=== PATIENT | female | born 1995 | race Caucasian/White ===

== ENCOUNTER 2017-01-24 23:00 | Emergency (ER) | payer BC ==
[2017-01-24 23:20] VITALS: BP 143/85
[2017-01-24] MEDS ORDERED: Sodium Chloride 0.9% 1,000 ML IV ONE (23:34)
[2017-01-24] MEDS ORDERED: Ketorolac 30 MG/ML SDV IVPUSH ONE (23:36)
--- NOTE | 2017-01-24 23:42 | EDM.PDOC ---
ED HPI GENERAL MEDICAL PROBLEM - General Chief Complaint: Abdominal Pain Stated Complaint: SIDE PAIN Time Seen by Provider: 01/24/17 23:34 Source of Information: Reports: Patient History Limitations: Reports: No Limitations - History of Present Illness INITIAL COMMENTS - FREE TEXT/NARRATIVE: 21 year old fm presents to ed with complaint of abdominal pain. Pain began at 4 pm today. It is sharp, continuous and located in the RUQ. She has vomited over 10 times and has vomited 3 times since coming to the ED. She denies any fever, chills, night sweats, diarrhea, hematuria, dysuria, vaginal discharge or vaginal bleeding. 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 Lawrence. She is scheduled to have cholecystectomy in the next few weeks. She has been having intermittent pain but it is controllable and the vomiting usually responds to OTC Ondansetron. This is the first time the pain has been continuous and she has not had repeated vomiting like this in the past. Her medications include control and Lexapro which she takes for anxiety. Right Upper Abdomen Pain Score (Numeric/FACES): 8 - Related Data Allergies Allergy/AdvReac Type Severity Reaction Status Date / Time No Known Allergies Allergy Verified 01/24/17 23:16 Home Meds: Home Meds Escitalopram Oxalate [Lexapro] 5 mg PO DAILY 01/24/17 [History] Metoclopramide [Reglan] 10 mg PO Q8H 7 Days #21 tablet 01/25/17 [Rx] Past Medical History HEENT History: Reports: Impaired Vision Cardiovascular History: Reports: None Respiratory History: Reports: None Gastrointestinal History: Reports: GERD Genitourinary History: Reports: Other (See Below) Other Genitourinary History: hydronephrosis [employer]ET [employer]OTE[employer] 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: Musculoskeletal History: Reports: Fracture Neurological History: Reports: None Psychiatric History: Reports: Depression Endocrine/Metabolic History: Reports: Other (See Below) Other Endocrine/Metabolic History: hypoglycemia Hematologic History: Reports: Other (See Below) Other Hematologic History: von Willenbrande Immunologic History: Reports: None Oncologic (Cancer) History: Reports: None Dermatologic History: Reports: None - Infectious Disease History Infectious Disease History: Reports: Chicken Pox, Shingles - Past Surgical History HEENT Surgical History: Reports: Adenoidectomy, Oral Surgery, Tonsillectomy Cardiovascular Surgical History: Reports: Coronary Artery Bypass Female Surgical History: Reports: None Social & Family History - Family History Family Medical History: Noncontributory Cardiac: Reports: High Cholesterol, Hypertension GI: Reports: Other (See Below) Other GI Family History: metabolic disorder-CPT ( son and brother) OBGYN: Reports: Other (See Below) Other OBGYN Family History: PCOS Musculoskeletal: Reports: Fibromyalgia Neurological: Reports: Seizure Psychiatric: Reports: Depression Other Hematologic Family History: von willenbrande disease ( mother) Oncologic: Reports: Other (See Below) Other Oncologic Family History: blood - Tobacco Use Smoking Status *Q: Never Smoker Second Hand Smoke Exposure: Yes - Caffeine Use Caffeine Use: Reports: Coffee - Alcohol Use Days Per Week of Alcohol Use: 0 - Recreational Drug Use Recreational Drug Use: No ED ROS GENERAL - Review of Systems Review Of Systems: See Below Constitutional: Reports: No Symptoms HEENT: Reports: No Symptoms Respiratory: Reports: No Symptoms Cardiovascular: Reports: No Symptoms Endocrine: Reports: No Symptoms GI/Abdominal: Reports: Abdominal Pain, Decreased Appetite, Nausea, Vomiting : Reports: No Symptoms Musculoskeletal: Reports: No Symptoms Skin: Reports: No Symptoms Neurological: Reports: No Symptoms Psychiatric: Reports: No Symptoms Hematologic/Lymphatic: Reports: No Symptoms Immunologic: Reports: No Symptoms ED EXAM, GI/ABD - Physical Exam Exam: See Below Exam Limited By: No Limitations General Appearance: Alert, Moderate Distress Eyes: Bilateral: Normal Appearance (No scleral icterus ) Ears: Normal External Exam, Hearing Grossly Normal Nose: Normal Inspection, Normal Mucosa, No Blood Throat/Mouth: Normal Inspection, Normal Lips, Normal Teeth, Normal Gums, Normal Oropharynx, Normal Voice, No Airway Compromise Head: Atraumatic, Normocephalic Neck: Normal Inspection, Supple, Non-Tender, Full Range of Motion Respiratory/Chest: No Respiratory Distress, Lungs Clear, Normal Breath Sounds Cardiovascular: Normal Peripheral Pulses, Regular Rate, Rhythm, No Edema, No JVD GI/Abdominal Exam: Normal Bowel Sounds, No Distention, Tender (RUQ), Other ( Positive murphys sign). No: Guarding, Rigid, Rebound Back Exam: Normal Inspection Extremities: Normal Inspection, Normal Range of Motion, Non-Tender, No Pedal Edema, Normal Capillary Refill Neurological: Alert, Oriented, CN II-XII Intact, Normal Cognition, Normal Gait, Normal Reflexes, No Motor/Sensory Deficits Psychiatric: Normal Affect, Normal Mood Skin Exam: Warm, Dry, Intact, No Rash. No: Jaundice Lymphatic: No Adenopathy Course - Vital Signs Last Recorded V/S: Last Vital Signs Temp 36.0 C 01/24/17 23:16 Pulse 87 01/24/17 23:16 Resp 18 01/24/17 23:16 BP 143/85 H 01/24/17 23:16 Pulse Ox 98 01/24/17 23:16 - Orders/Labs/Meds Labs: Laboratory Tests 01/24/17 01/24/17 01/24/17 Range/Units 23:34 23:53 23:53 WBC 6.72 (4.0-11.0) K/uL RBC 4.67 (4.30-5.90) M/uL Hgb 14.3 (12.0-16.0) g/dL Hct 41.7 (36.0-46.0) % MCV 89.3 (80.0-98.0) fL MCH 30.6 (27.0-32.0) pg MCHC 34.3 (31.0-37.0) g/dL RDW Std Deviation 41.0 (28.0-62.0) fl RDW Coeff of Noy 13 (11.0-15.0) % Plt Count 236 (150-400) K/uL MPV 11.50 (7.40-12.00) fL Neut % (Auto) 50.6 (48.0-80.0) % Lymph % (Auto) 40.5 H (16.0-40.0) % Stoddard % (Auto) 6.7 (0.0-15.0) % Eos % (Auto) 1.8 (0.0-7.0) % Baso % (Auto) 0.4 (0.0-1.5) % Neut # (Auto) 3.4 (1.4-5.7) K/uL Lymph # (Auto) 2.7 H (0.6-2.4) K/uL Stoddard # (Auto) 0.5 (0.0-0.8) K/uL Eos # (Auto) 0.1 (0.0-0.7) K/uL Baso # (Auto) 0.0 (0.0-0.1) K/uL Nucleated RBC % 0.0 /100WBC Nucleated RBCs # 0 K/uL Sodium 140 (136-146) mmol/L Potassium 4.0 (3.5-5.1) mmol/L Chloride 109 (98-110) mmol/L Carbon Dioxide 21 (21-31) mmol/L BUN 16 (6.0-23.0) mg/dL Creatinine 0.7 (0.6-1.5) mg/dL Est Cr Clr Drug Dosing 140.90 mL/min Estimated GFR (MDRD) > 60.0 ml/min Glucose 103 (60-110) mg/dL Calcium 9.7 (8.8-10.8) mg/dL Total Bilirubin 0.3 (0.1-1.5) mg/dL AST 19 (5-40) IU/L ALT 22 (8-54) IU/L Alkaline Phosphatase 77 (40-150) Total Protein 7.3 (6.0-8.0) g/dL Albumin 4.0 (3.5-5.0) g/dL Globulin 3.3 (2.0-3.5) g/dL Albumin/Globulin Ratio 1.2 L (1.3-2.8) Lipase 56 (7-80) U/L HCG, Qual (NEG) Urine Color YELLOW Urine Appearance CLEAR Urine pH 7.0 (5.0-8.0) Ur Specific Cody 1.020 (1.001-1.035) Urine Protein NEGATIVE (NEGATIVE) mg/dL Urine Glucose (UA) NEGATIVE (NEGATIVE) mg/dL Urine Ketones NEGATIVE (NEGATIVE) mg/dL Urine Occult Blood TRACE-INTACT (NEGATIVE) Urine Nitrite NEGATIVE (NEGATIVE) Urine Bilirubin NEGATIVE (NEGATIVE) Urine Urobilinogen 0.2 (<2.0) EU/dL Ur Leukocyte Esterase NEGATIVE (NEGATIVE) Urine RBC 2-4 (0-2/HPF) Urine WBC 1-2 (0-5/HPF) Ur Epithelial Cells MODERATE (NONE-FEW) Urine Bacteria FEW (NEGATIVE) 01/24/17 Range/Units 23:53 WBC (4.0-11.0) K/uL RBC (4.30-5.90) M/uL Hgb (12.0-16.0) g/dL Hct (36.0-46.0) % MCV (80.0-98.0) fL MCH (27.0-32.0) pg MCHC (31.0-37.0) g/dL RDW Std Deviation (28.0-62.0) fl RDW Coeff of Noy (11.0-15.0) % Plt Count (150-400) K/uL MPV (7.40-12.00) fL Neut % (Auto) (48.0-80.0) % Lymph % (Auto) (16.0-40.0) % Stoddard % (Auto) (0.0-15.0) % Eos % (Auto) (0.0-7.0) % Baso % (Auto) (0.0-1.5) % Neut # (Auto) (1.4-5.7) K/uL Lymph # (Auto) (0.6-2.4) K/uL Stoddard # (Auto) (0.0-0.8) K/uL Eos # (Auto) (0.0-0.7) K/uL Baso # (Auto) (0.0-0.1) K/uL Nucleated RBC % /100WBC Nucleated RBCs # K/uL Sodium (136-146) mmol/L Potassium (3.5-5.1) mmol/L Chloride (98-110) mmol/L Carbon Dioxide (21-31) mmol/L BUN (6.0-23.0) mg/dL Creatinine (0.6-1.5) mg/dL Est Cr Clr Drug Dosing mL/min Estimated GFR (MDRD) ml/min Glucose (60-110) mg/dL Calcium (8.8-10.8) mg/dL Total Bilirubin (0.1-1.5) mg/dL AST (5-40) IU/L ALT (8-54) IU/L Alkaline Phosphatase (40-150) Total Protein (6.0-8.0) g/dL Albumin (3.5-5.0) g/dL Globulin (2.0-3.5) g/dL Albumin/Globulin Ratio (1.3-2.8) Lipase (7-80) U/L HCG, Qual NEGATIVE (NEG) Urine Color Urine Appearance Urine pH (5.0-8.0) Ur Specific Cody (1.001-1.035) Urine Protein (NEGATIVE) mg/dL Urine Glucose (UA) (NEGATIVE) mg/dL Urine Ketones (NEGATIVE) mg/dL Urine Occult Blood (NEGATIVE) Urine Nitrite (NEGATIVE) Urine Bilirubin (NEGATIVE) Urine Urobilinogen (<2.0) EU/dL Ur Leukocyte Esterase (NEGATIVE) Urine RBC (0-2/HPF) Urine WBC (0-5/HPF) Ur Epithelial Cells (NONE-FEW) Urine Bacteria (NEGATIVE) Meds: Medications Discontinued Medications Generic Name Dose Route Start Last Admin Trade Name Freq PRN Reason Stop Dose Admin Sodium Chloride 1,000 mls @ 999 mls/hr 01/24/17 23:34 01/24/17 23:49 Normal Saline IV 01/25/17 00:34 999 mls/hr .BOLUS ONE Administration Ketorolac Tromethamine 30 mg 01/24/17 23:36 01/24/17 23:49 Toradol IVPUSH 01/24/17 23:37 30 mg ONETIME ONE Administration Morphine Sulfate 2 mg 01/25/17 01:02 01/25/17 01:12 Morphine IVPUSH 01/25/17 01:03 2 mg ONETIME ONE Administration Ondansetron HCl 4 mg 01/24/17 23:44 01/24/17 23:49 Zofran IVPUSH 01/24/17 23:45 4 mg ONETIME ONE Administration Departure - Departure Time of Disposition: 01:55 Disposition: Home, Self-Care 01 Clinical Impression: Dysfunctional gallbladder, Nausea & vomiting - Discharge Information Prescriptions: Metoclopramide [Reglan] 10 mg PO Q8H 7 Days #21 tablet Referrals: Shanel Olvera DO [Primary Care Provider] - Rachna Lawrence MD [Physician] - Forms: ED Department Discharge Additional Instructions: The following information is given to patients seen in the emergency department who are being discharged to home. This information is to outline your options for follow-up care. We provide all patients seen in our emergency department with a follow-up referral. The need for follow-up, as well as the timing and circumstances, are variable depending upon the specifics of your emergency department visit. If you don't have a primary care physician on staff, we will provide you with a referral. We always advise you to contact your personal physician following an emergency department visit to inform them of the circumstance of the visit and for follow-up with them and/or the need for any referrals to a consulting specialist. The emergency department will also refer you to a specialist when appropriate. This referral assures that you have the opportunity for followup care with a specialist. All of these measure are taken in an effort to provide you with optimal care, which includes your followup. Under all circumstances we always encourage you to contact your private physician who remains a resource for coordinating your care. When calling for followup care, please make the office aware that this follow-up is from your recent emergency room visit. If for any reason you are refused follow-up, please contact the [facility] emergency department at and asked to speak to the emergency department charge nurse. - Problem List Review Problem List Initiated/Reviewed/Updated: Yes - Assessment/Plan Plan: Diagnostics: CBC, CMP, Lipase, HCG, UA Therapeutics: IV NS bolus x1, Toradol 30 mg IV singl dose, Zofran 4 mg IV single dose, Morphine 2m IV single dose Assessment: RUQ Pain Nausea & Vomiting GB Dysfunction Plan: Patients pain and vomiting were controlled. No abnormalities present on Work- up. She is already being seen by Dr. Lawrence as outpatient for management of GB Dysfunction. She is scheduled to have elective cholecystectomy on 01/20/17. Patient will be discharged to her home and instructed to follow-up with General Surgery to discuss whether or not she needs to have procedure at sooner date. She was provided prescriptions for [place] 5-325 q6hrs, total 28 tabs and Reglan 10 mg TID PRN total 21 tabs.
[2017-01-24] MEDS ORDERED: Ondansetron 4 MG/2 ML SDV IVPUSH ONE (23:44)
[2017-01-25 00:37] LABS: CHLORIDE,CL 109 mmol/L (98-110); SODIUM,NA 140 mmol/L (136-146)
[2017-01-25] MEDS ORDERED: Morphine 2 MG/ML Syringe IVPUSH ONE (01:02)
== END 2017-01-25 02:26 | disposition home or self-care (01) ==
LOC: MW.ED 23:00
DX: K82.8 Other specified diseases of gallbladder (principal); Z79.899 Other long term (current) drug therapy
CPT/HCPCS: 36415; 80053; 81001; 83690; 84703; 85025; 96361; 96374; 96375; 99284; J1885; J2270; J2405; J7040; 99283

== ENCOUNTER 2017-01-26 17:36 | Observation (INO) | payer BC ==
[2017-01-26] MEDS ORDERED: Sodium Chloride 0.9% 2.5 ML Syringe FLUSH PRN (18:12)
[2017-01-26] MEDS ORDERED: Sodium Chloride 0.9% 10 ML Syringe FLUSH PRN (18:12)
[2017-01-26] MEDS ORDERED: Ondansetron 4 MG/2 ML SDV IVPUSH ONE (18:14)
[2017-01-26] MEDS ORDERED: Sodium Chloride 0.9% 1,000 ML IV ONE ×2 (18:15)
[2017-01-26 19:01] LABS: CHLORIDE,CL 107 mmol/L (98-110); SODIUM,NA 140 mmol/L (136-146)
[2017-01-26] MEDS ORDERED: Morphine 10 MG/ML Syringe IV ONE (19:16)
--- NOTE | 2017-01-26 19:31 | EDM.PDOC ---
ED HPI GENERAL MEDICAL PROBLEM - General Chief Complaint: Abdominal Pain Stated Complaint: ABDOMINAL PAIN Time Seen by Provider: 01/26/17 18:03 Source of Information: Reports: Patient History Limitations: Reports: No Limitations - History of Present Illness INITIAL COMMENTS - FREE TEXT/NARRATIVE: HISTORY AND PHYSICAL: 21-year-old patient of Dr. Powell presents with increasing abdominal pain History of Present Illness: []Patient has history of biliary dyskinesia. She is scheduled for surgical procedure in the near future For the last 4 days she has been unable to eat and drink pain has worsened her medications at home are not effective Review of Systems: As per history of present illness and below otherwise all systems reviewed and negative. Past medical history: As per history of present illness and as reviewed below otherwise noncontributory. Surgical history: As per history of present illness and as reviewed below otherwise noncontributory. Social history: No reported history of drug or alcohol abuse. Family history: As per history of present illness and as reviewed below otherwise noncontributory. Physical exam: Alert and oriented female who looks in distress. HEENT is unremarkable. She is speaking in full sentences without shortness of breath. HEENT: Atraumatic, normocehpalic, pupils reactive, negative for conjunctival pallor or scleral icterus, mucous membranes moist, throat clear, neck supple, nontender, trachea midline. Lungs: Clear to auscultation, breath sounds equal bilaterally, chest non tender. Heart: S1S2, regular, negative for clicks, rubs, or JVD. Abdomen: Soft, nondistended, nontender. Negative for masses or hepatossplenmegaly. Negative for costovertebral tenderness. Pelvis: Stable nontender. Genitourinary: Deferred. Rectal: Deferred Extremities: Atraumatic, negative for cords or calf pain. Neurovascular unremarkable. Neuro: Awake, alert, oriented. Cranial nerves II through XII unremarkable. Cerebellum unremarkable. Motor and sensory unremarkable throughout. Exam nonfocal. Discussed patient with Dr. Ramírez upon entry to the emergency department. And she expresses her desire for this patient to be admitted should her pain not be able to be controlled. Spoke with Dr. Ramírez concerning patient and her admitted for observation is agreeable with this plan of action and will come in and see her patient. Diagnostics: [Ultrasound abdomen ] Therapeutics: [IV fluids Zofran Morphine Toradol] Impression: [Biliary dyskinesia intractable pain] Plan: []admit for observation Definitive disposition and diagnosis as appropriate pending reevaluation and review of above. Onset: Gradual Duration: Day(s):, Getting Worse Location: Reports: Abdomen Right Upper Abdominal Pain Score (Numeric/FACES): 8 - Related Data Allergies Allergy/AdvReac Type Severity Reaction Status Date / Time No Known Allergies Allergy Verified 01/26/17 17:57 Home Meds: Home Meds Escitalopram Oxalate [Lexapro] 5 mg PO DAILY 01/24/17 [History] Metoclopramide [Reglan] 10 mg PO Q8H 7 Days #21 tablet 01/25/17 [Rx] Hydrocodone/Acetaminophen [[place] 5-325] 1 tab PO ASDIRECTED PRN 01/26/17 [ History] Past Medical History HEENT History: Reports: Impaired Vision Cardiovascular History: Reports: None Respiratory History: Reports: None Gastrointestinal History: Reports: GERD Genitourinary History: Reports: Other (See Below) Other Genitourinary History: hydronephrosis 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: Musculoskeletal History: Reports: Fracture Neurological History: Reports: None Psychiatric History: Reports: Depression Endocrine/Metabolic History: Reports: Other (See Below) Other Endocrine/Metabolic History: hypoglycemia Hematologic History: Reports: Other (See Below) Other Hematologic History: von Willenbrande Immunologic History: Reports: None Oncologic (Cancer) History: Reports: None Dermatologic History: Reports: None - Infectious Disease History Infectious Disease History: Reports: Chicken Pox, Shingles - Past Surgical History HEENT Surgical History: Reports: Adenoidectomy, Oral Surgery, Tonsillectomy Cardiovascular Surgical History: Reports: Coronary Artery Bypass Female Surgical History: Reports: None Social & Family History - Family History Family Medical History: Noncontributory Cardiac: Reports: High Cholesterol, Hypertension GI: Reports: Other (See Below) Other GI Family History: metabolic disorder-CPT ( son and brother) OBGYN: Reports: Other (See Below) Other OBGYN Family History: PCOS Musculoskeletal: Reports: Fibromyalgia Neurological: Reports: Seizure Psychiatric: Reports: Depression Other Hematologic Family History: von willenbrande disease ( mother) Oncologic: Reports: Other (See Below) Other Oncologic Family History: blood - Tobacco Use Smoking Status *Q: Never Smoker Second Hand Smoke Exposure: No - Caffeine Use Caffeine Use: Reports: Coffee - Alcohol Use Days Per Week of Alcohol Use: 0 - Recreational Drug Use Recreational Drug Use: No ED ROS GENERAL - Review of Systems Review Of Systems: ROS reveals no pertinent complaints other than HPI. ED EXAM, GI/ABD - Physical Exam Exam: See Below (see dictation) Course - Vital Signs Last Recorded V/S: Last Vital Signs Temp Pulse 90 01/26/17 17:52 Resp 20 01/26/17 17:52 BP 136/96 H 01/26/17 17:52 Pulse Ox 98 01/26/17 17:52 - Orders/Labs/Meds Orders: Active Orders 24 hr Category Date Time Status Patient Status [ADT] Stat ADT 01/26/17 19:19 Active Abdomen Ltd [US] Stat Exams 01/26/17 18:12 Taken Sodium Chloride 0.9% [Saline Flush] Med 01/26/17 18:12 Active 10 ml FLUSH ASDIRECTED PRN Sodium Chloride 0.9% [Saline Flush] Med 01/26/17 18:12 Active 2.5 ml FLUSH ASDIRECTED PRN Saline Lock Insert [OM.PC] Stat Oth 01/26/17 18:12 Ordered Medication Orders Sodium Chloride (Saline Flush) 10 ml FLUSH ASDIRECTED PRN PRN Reason: Keep Vein Open Sodium Chloride (Saline Flush) 2.5 ml FLUSH ASDIRECTED PRN PRN Reason: Keep Vein Open Labs: Laboratory Tests 01/26/17 01/26/17 Range/Units 18:27 18:27 WBC 7.23 (4.0-11.0) K/uL RBC 4.81 (4.30-5.90) M/uL Hgb 14.8 (12.0-16.0) g/dL Hct 42.7 (36.0-46.0) % MCV 88.8 (80.0-98.0) fL MCH 30.8 (27.0-32.0) pg MCHC 34.7 (31.0-37.0) g/dL RDW Std Deviation 40.1 (28.0-62.0) fl RDW Coeff of Noy 13 (11.0-15.0) % Plt Count 216 (150-400) K/uL MPV 11.60 (7.40-12.00) fL Neut % (Auto) 61.9 (48.0-80.0) % Lymph % (Auto) 30.6 (16.0-40.0) % Mineral % (Auto) 5.9 (0.0-15.0) % Eos % (Auto) 1.2 (0.0-7.0) % Baso % (Auto) 0.4 (0.0-1.5) % Neut # (Auto) 4.5 (1.4-5.7) K/uL Lymph # (Auto) 2.2 (0.6-2.4) K/uL Mineral # (Auto) 0.4 (0.0-0.8) K/uL Eos # (Auto) 0.1 (0.0-0.7) K/uL Baso # (Auto) 0.0 (0.0-0.1) K/uL Nucleated RBC % 0.0 /100WBC Nucleated RBCs # 0 K/uL Sodium 140 (136-146) mmol/L Potassium 3.7 (3.5-5.1) mmol/L Chloride 107 (98-110) mmol/L Carbon Dioxide 22 (21-31) mmol/L BUN 13 (6.0-23.0) mg/dL Creatinine 0.7 (0.6-1.5) mg/dL Est Cr Clr Drug Dosing 131.74 mL/min Estimated GFR (MDRD) > 60.0 ml/min Glucose 88 (60-110) mg/dL Calcium 9.8 (8.8-10.8) mg/dL Total Bilirubin 0.4 (0.1-1.5) mg/dL AST 20 (5-40) IU/L ALT 24 (8-54) IU/L Alkaline Phosphatase 83 (40-150) Total Protein 7.7 (6.0-8.0) g/dL Albumin 4.3 (3.5-5.0) g/dL Globulin 3.4 (2.0-3.5) g/dL Albumin/Globulin Ratio 1.3 (1.3-2.8) Meds: Medications Generic Name Dose Route Start Last Admin Trade Name Freq PRN Reason Stop Dose Admin Sodium Chloride 10 ml 01/26/17 18:12 Saline Flush FLUSH ASDIRECTED PRN Keep Vein Open Sodium Chloride 2.5 ml 01/26/17 18:12 Saline Flush FLUSH ASDIRECTED PRN Keep Vein Open Discontinued Medications Generic Name Dose Route Start Last Admin Trade Name Kassie PRN Reason Stop Dose Admin Sodium Chloride 1,000 mls @ 999 mls/hr 01/26/17 18:15 01/26/17 18:33 Normal Saline IV 01/26/17 19:15 999 mls/hr STAT ONE Administration Sodium Chloride 1,000 mls @ 999 mls/hr 01/26/17 18:15 01/26/17 19:06 Normal Saline IV 01/26/17 19:15 Not Given STAT ONE Morphine Sulfate 2 mg 01/26/17 19:16 01/26/17 19:29 Morphine IV 01/26/17 19:17 2 mg ONETIME ONE Administration Ondansetron HCl 8 mg 01/26/17 18:14 01/26/17 18:34 Zofran IVPUSH 01/26/17 18:15 8 mg ONETIME ONE Administration Departure - Departure Time of Disposition: 19:32 Disposition: Refer to Observation Condition: Good Clinical Impression: Intractable abdominal pain, Biliary dyskinesia - Discharge Information Referrals: Shanel Olvera DO [Primary Care Provider] - Forms: ED Department Discharge - My Orders Last 24 Hours: My Active Orders 01/26/17 18:12 Abdomen Ltd [US] Stat Sodium Chloride 0.9% [Saline Flush] 10 ml FLUSH ASDIRECTED PRN Sodium Chloride 0.9% [Saline Flush] 2.5 ml FLUSH ASDIRECTED PRN Saline Lock Insert [OM.PC] Stat 01/26/17 19:19 Patient Status [ADT] Stat - Assessment/Plan Last 24 Hours: My Active Orders 01/26/17 18:12 Abdomen Ltd [US] Stat Sodium Chloride 0.9% [Saline Flush] 10 ml FLUSH ASDIRECTED PRN Sodium Chloride 0.9% [Saline Flush] 2.5 ml FLUSH ASDIRECTED PRN Saline Lock Insert [OM.PC] Stat 01/26/17 19:19 Patient Status [ADT] Stat
[2017-01-26] MEDS ORDERED: Metoclopramide 10 MG/2 ML SDV IV PRN (19:59)
[2017-01-26] MEDS ORDERED: Promethazine 25 MG/ML SDV IM PRN (19:59)
[2017-01-26] MEDS: Lactated Ringers 1,000 ML IV SCH (20:19)
--- NOTE | 2017-01-26 20:19 | PCM.HP ---
H&P History of Present Illness - General Date of Service: 01/26/17 Source of Information: Patient History Limitations: Reports: No Limitations - History of Present Illness Initial Comments - Free Text/Narative: Patient is a 21 year old female who presents with four days of intractable RUQ pain associated with nausea and vomiting. She has known biliary dyskinesia and was scheduled to have her GB out at the end of the month. She developed severe RUQ pain 4 days ago. She came to the ED and with IVF and IV MS her pain/nausea improved. Upon getting home, however it recurred and the Reglan and po narcotics did not improve her symptoms. She denies fevers or chills. She has had no po intake other than small amounts of water for the past 4 days. She called my office and was told to come to the ED. She was given IV narcotic pain meds and IV zofran with no improvement in her symptoms. Her LFTs, CBC, and RUQ US were normal. On exam she has a mild positive murphys sign. Right Upper Abdominal Pain Score (Numeric/FACES): 8 - Related Data Allergies/Adverse Reactions: Allergies Allergy/AdvReac Type Severity Reaction Status Date / Time No Known Allergies Allergy Verified 01/26/17 17:57 Home Medications: Home Meds Escitalopram Oxalate [Lexapro] 5 mg PO DAILY 01/24/17 [History] Metoclopramide [Reglan] 10 mg PO Q8H 7 Days #21 tablet 01/25/17 [Rx] Hydrocodone/Acetaminophen [[place] 5-325] 1 tab PO ASDIRECTED PRN 01/26/17 [ History] Past Medical History HEENT History: Reports: Impaired Vision Cardiovascular History: Reports: None Respiratory History: Reports: None Gastrointestinal History: Reports: GERD Genitourinary History: Reports: Other (See Below) Other Genitourinary History: hydronephrosis [employer] History: Reports: Musculoskeletal History: Reports: Fracture Neurological History: Reports: None Psychiatric History: Reports: Depression Endocrine/Metabolic History: Reports: Other (See Below) Other Endocrine/Metabolic History: hypoglycemia Hematologic History: Reports: Other (See Below) Other Hematologic History: von Willenbrande Immunologic History: Reports: None Oncologic (Cancer) History: Reports: None Dermatologic History: Reports: None - Infectious Disease History Infectious Disease History: Reports: Chicken Pox, Shingles - Past Surgical History HEENT Surgical History: Reports: Adenoidectomy, Oral Surgery, Tonsillectomy Cardiovascular Surgical History: Reports: Coronary Artery Bypass Female Surgical History: Reports: None Social & Family History - Family History Family Medical History: Noncontributory Cardiac: Reports: High Cholesterol, Hypertension GI: Reports: Other (See Below) Other GI Family History: metabolic disorder-CPT ( son and brother) OBGYN: Reports: Other (See Below) Other OBGYN Family History: PCOS Musculoskeletal: Reports: Fibromyalgia Neurological: Reports: Seizure Psychiatric: Reports: Depression Other Hematologic Family History: von willenbrande disease ( mother) Oncologic: Reports: Other (See Below) Other Oncologic Family History: blood - Tobacco Use Smoking Status *Q: Never Smoker Second Hand Smoke Exposure: No - Caffeine Use Caffeine Use: Reports: Coffee - Alcohol Use Days Per Week of Alcohol Use: 0 - Recreational Drug Use Recreational Drug Use: No H&P Review of Systems - Review of Systems: Review Of Systems: ROS reveals no pertinent complaints other than HPI. Exam - Exam Exam: See Below - Vital Signs Vital Signs: Last Vital Signs Temp 36.8 C 01/26/17 19:57 Pulse 78 01/26/17 19:31 Resp 18 01/26/17 19:31 BP 119/77 01/26/17 19:31 Pulse Ox 98 01/26/17 17:52 Weight: 102.965 kg - Exam General: Alert, Oriented HEENT: Conjunctiva Clear, Nares Patent, Pupils Equal, Pupils Reactive Neck: Supple Lungs: Clear to Auscultation, Normal Respiratory Effort Cardiovascular: Regular Rate, Regular Rhythm GI/Abdominal Exam: Normal Bowel Sounds, Soft, No Distention, Other (Charlotte sign with inspiration. ) Extremities: Normal Inspection, Normal Range of Motion - Patient Data Result Diagrams: 01/26/17 18:27 01/26/17 18:27 *Q Meaningful Use (ADM) - VTE *Q VTE Criteria *Q: - Stroke *Q Stroke Criteria *Q: - AMI *Q AMI Criteria *Q: - Problem List (1) Nausea & vomiting SNOMED Code(s): 67072509 ICD Code: R11.2 - NAUSEA WITH VOMITING, UNSPECIFIED Status: Acute Current Visit: No (2) Intractable abdominal pain SNOMED Code(s): 56487244 ICD Code: R10.9 - UNSPECIFIED ABDOMINAL PAIN Status: Acute Current Visit : Yes (3) Biliary dyskinesia SNOMED Code(s): 257028108 ICD Code: K82.8 - OTHER SPECIFIED DISEASES OF GALLBLADDER Status: Acute Current Visit: Yes Problem List Initiated/Reviewed/Updated: Yes Orders Last 24hrs: Active Orders 24 hr Category Date Time Status Intake and Output [RC] QSHIFT Care 01/26/17 20:00 Ordered Oxygen Therapy [RC] PRN Care 01/26/17 19:59 Ordered RT Incentive Spirometry [RC] ASDIRECTED Care 01/26/17 19:59 Ordered Up ad Pat [RC] ASDIRECTED Care 01/26/17 19:59 Ordered Vital Signs [RC] PER UNIT ROUTINE Care 01/26/17 19:59 Ordered Nothing Per Oral Diet [DIET] Diet 01/26/17 Dinner Ordered HELICOBACTER PYLORI AB IGG [CHEM] Routine Lab 01/26/17 20:04 Ordered Lactated Ringers @ 125 MLS/HR(1000ml) Med 01/26/17 20:00 Ordered Lactated Ringers [Ringers, Lactated] 1,000 ml IV ASDIRECTED Metoclopramide [Reglan] Med 01/26/17 19:59 Ordered 5 mg IV Q6H PRN Morphine Med 01/26/17 19:59 Ordered 2 mg IVPUSH Q1H PRN Ondansetron [Zofran] Med 01/26/17 19:59 Ordered 4 mg IVPUSH Q6H PRN Pantoprazole [ProTONIX IV] Med 01/26/17 20:00 Ordered 40 mg IVPUSH DAILY Promethazine [Phenergan] Med 01/26/17 19:59 Ordered 12.5 mg IM Q6H PRN Resuscitation Status Routine Resus Stat 01/26/17 19:59 Ordered Medication Orders Lactated Ringer's (Ringers, Lactated) 1,000 mls @ 125 mls/hr IV ASDIRECTED MARINE Metoclopramide HCl (Reglan) 5 mg IV Q6H PRN PRN Reason: Nausea Morphine Sulfate (Morphine) 2 mg IVPUSH Q1H PRN PRN Reason: Pain (mild 1-3) Ondansetron HCl (Zofran) 4 mg IVPUSH Q6H PRN PRN Reason: Nausea/Vomiting Pantoprazole Sodium (Protonix Iv) 40 mg IVPUSH DAILY MARINE Promethazine HCl (Phenergan) 12.5 mg IM Q6H PRN PRN Reason: Nausea Sodium Chloride (Saline Flush) 10 ml FLUSH ASDIRECTED PRN PRN Reason: Keep Vein Open Sodium Chloride (Saline Flush) 2.5 ml FLUSH ASDIRECTED PRN PRN Reason: Keep Vein Open Assessment/Plan Comment:: Despite her normal labs and US the patient is having intractable nausea, vomiting, and abdominal pain. In the distant past she was diagnosed with "ulcers " but doesn't know the details around this. Will check an H. pylori antigen and start her on IV protonix in case this is secondary to gastritis. Since she has documented biliary dyskinesia I will perform a laparoscopic cholecystectomy during this admission. We had already discussed the procedure, expected perioperative course and risks in clinic, but we reviewed them. If I am unable to perform this safely laparoscopically I will perform it open.She verbalized understanding and wishes to proceed. She should remain strictly NPO. I will give her LR @ 125ml/hr. She can have IV morphine as this seems to give her better control than dilaudid. She can have prn zofran, reglan, or compazine for nausea.
[2017-01-26] MEDS: Pantoprazole 40 MG Vial IVPUSH SCH (20:22)
[2017-01-26] MEDS: Piperacillin/Tazobactam 3.375 GM in Sodium Chloride 0.9% 50 ML IV SCH (20:56)
[2017-01-26] MEDS: Ondansetron 4 MG/2 ML SDV IVPUSH PRN (23:12)
[2017-01-26] MEDS: Morphine 2 MG/ML Syringe IVPUSH PRN (23:13)
[2017-01-27] MEDS: Ondansetron 4 MG/2 ML SDV IVPUSH PRN ×2 (04:02→20:02)
[2017-01-27] MEDS: Piperacillin/Tazobactam 3.375 GM in Sodium Chloride 0.9% 50 ML IV SCH ×2 (04:06→11:55)
[2017-01-27] MEDS: Morphine 2 MG/ML Syringe IVPUSH PRN ×2 (04:26→09:40)
[2017-01-27] MEDS: Lactated Ringers 1,000 ML IV SCH (05:31)
--- NOTE | 2017-01-27 08:39 | PCM.PREANE ---
Preanesthetic Assessment - Anesthesia/Transfusion/Family Hx Anesthesia History: Prior Anesthesia Without Reaction (T&A, wisdom tooth extraction (hx of CABG is error in medical record)) Transfusion History: No Prior Transfusion(s) - Review of Systems General: No Symptoms Pulmonary: No Symptoms Cardiovascular: No Symptoms Gastrointestinal: Abdominal Pain Neurological: No Symptoms Other: Reports: None - Physical Assessment NPO Status Date: 01/26/17 O2 Sat by Pulse Oximetry: 99 Respiratory Rate: 16 Vital Signs: Last Vital Signs Temp 36.4 C 01/27/17 07:57 Pulse 71 01/27/17 07:57 Resp 16 01/27/17 07:57 BP 107/67 01/27/17 07:57 Pulse Ox 99 01/27/17 07:57 Height: 1.75 m Weight: 104.1 kg ASA Class: 2 Mental Status: Alert & Oriented x3 Airway Class: Mallampati = 2 Dentition: Reports: Normal Dentition ROM/Head Extension: Full Lungs: Clear to Auscultation, Normal Respiratory Effort Cardiovascular: Regular Rate, Regular Rhythm - Lab Values: Laboratory Last Values WBC 7.23 K/uL (4.0-11.0) 01/26/17 18: RBC 4.81 M/uL (4.30-5.90) 01/26/17 18:27 Hgb 14.8 g/dL (12.0-16.0) 01/26/17 18:27 Hct 42.7 % (36.0-46.0) 01/26/17 18:27 MCV 88.8 fL (80.0-98.0) 01/26/17 18: MCH 30.8 pg (27.0-32.0) 01/26/17 18: MCHC 34.7 g/dL (31.0-37.0) 01/26/17 18:27 RDW Std Deviation 40.1 fl (28.0-62.0) 01/26/17 18: RDW Coeff of Noy 13 % (11.0-15.0) 01/26/17 18:27 Plt Count 216 K/uL (150-400) 01/26/17 18:27 MPV 11.60 fL (7.40-12.00) 01/26/17 18:27 Neut % (Auto) 61.9 % (48.0-80.0) 01/26/17 18: Lymph % (Auto) 30.6 % (16.0-40.0) 01/26/17 18: Hart % (Auto) 5.9 % (0.0-15.0) 01/26/17 18: Eos % (Auto) 1.2 % (0.0-7.0) 01/26/17 18: Baso % (Auto) 0.4 % (0.0-1.5) 01/26/17 18: Neut # (Auto) 4.5 K/uL (1.4-5.7) 01/26/17 18: Lymph # (Auto) 2.2 K/uL (0.6-2.4) 01/26/17 18: Hart # (Auto) 0.4 K/uL (0.0-0.8) 01/26/17 18: Eos # (Auto) 0.1 K/uL (0.0-0.7) 01/26/17 18: Baso # (Auto) 0.0 K/uL (0.0-0.1) 01/26/17 18: Nucleated RBC % 0.0 /100WBC 01/26/17 18: Nucleated RBCs # 0 K/uL 01/26/17 18: Sodium 140 mmol/L (136-146) 01/26/17 18: Potassium 3.7 mmol/L (3.5-5.1) 01/26/17 18: Chloride 107 mmol/L (98-110) 01/26/17 18: Carbon Dioxide 22 mmol/L (21-31) 01/26/17 18: BUN 13 mg/dL (6.0-23.0) 01/26/17 18: Creatinine 0.7 mg/dL (0.6-1.5) 01/26/17 18: Est Cr Clr Drug Dosing 131.74 mL/min 01/26/17 18: Estimated GFR (MDRD) > 60.0 ml/min 01/26/17 18: Glucose 88 mg/dL (60-110) 01/26/17 18: Calcium 9.8 mg/dL (8.8-10.8) 11/27/17 18:27 Total Bilirubin 0.4 mg/dL (0.1-1.5) 01/26/17 18:27 AST 20 IU/L (5-40) 01/26/17 18:27 ALT 24 IU/L (8-54) 01/26/17 18:27 Alkaline Phosphatase 83 (40-150) 01/26/17 18:27 Total Protein 7.7 g/dL (6.0-8.0) 01/26/17 18:27 Albumin 4.3 g/dL (3.5-5.0) 01/26/17 18:27 Globulin 3.4 g/dL (2.0-3.5) 01/26/17 18:27 Albumin/Globulin Ratio 1.3 (1.3-2.8) 01/26/17 18:27 H. pylori IgG Antibody NEGATIVE (NEG) 01/26/17 18:27 - Allergies Allergies/Adverse Reactions: Allergies Allergy/AdvReac Type Severity Reaction Status Date / Time No Known Allergies Allergy Verified 01/26/17 17:57 - Anesthesia Plan Pre-Op Medication Ordered: None - Acknowledgements Anesthesia Type Planned: General Anesthesia Pt an Appropriate Candidate for the Planned Anesthesia: Yes Alternatives and Risks of Anesthesia Discussed w Pt/Guardian: Yes Pt/Guardian Understands and Agrees with Anesthesia Plan: Yes PreAnesthesia Questionnaire HEENT History: Reports: Impaired Vision Cardiovascular History: Reports: None Respiratory History: Reports: None Gastrointestinal History: Reports: GERD Genitourinary History: Reports: Other (See Below) Other Genitourinary History: hydronephrosis [employer]ENT History: Reports: Musculoskeletal History: Reports: Fracture Neurological History: Reports: None Psychiatric History: Reports: Depression Endocrine/Metabolic History: Reports: Other (See Below) Other Endocrine/Metabolic History: hypoglycemia Hematologic History: Reports: Other (See Below) Other Hematologic History: von Willenbrande Immunologic History: Reports: None Oncologic (Cancer) History: Reports: None Dermatologic History: Reports: None - Infectious Disease History Infectious Disease History: Reports: Chicken Pox, Shingles - Past Surgical History HEENT Surgical History: Reports: Adenoidectomy, Oral Surgery, Tonsillectomy Female Surgical History: Reports: None - SUBSTANCE USE Smoking Status *Q: Never Smoker Second Hand Smoke Exposure: Yes Days Per Week of Alcohol Use: 0 Date of Last Drink: 12/20/16 Recreational Drug Use History: No - HOME MEDS Home Medications: Home Meds Escitalopram Oxalate [Lexapro] 5 mg PO DAILY 01/24/17 [History] Metoclopramide [Reglan] 10 mg PO Q8H 7 Days #21 tablet 01/25/17 [Rx] Hydrocodone/Acetaminophen [[place] 5-325] 1 tab PO ASDIRECTED PRN 01/26/17 [ History] - CURRENT (IN HOUSE) MEDS Current Meds: Current Medications Lactated Ringer's (Ringers, Lactated) 1,000 mls @ 125 mls/hr IV ASDIRECTED [facility] Last Admin: 01/27/17 05:31 Dose: 125 mls/hr Piperacillin Sod/Tazobactam (Sod 3.375 gm/ Sodium Chloride) 50 mls @ 100 mls/ hr IV Q8H [facility] Last Admin: 01/27/17 04:06 Dose: 100 mls/hr Metoclopramide HCl (Reglan) 5 mg IV Q6H PRN PRN Reason: Nausea Morphine Sulfate (Morphine) 2 mg IVPUSH Q1H PRN PRN Reason: Pain (mild 1-3) Last Admin: 01/27/17 04:26 Dose: 2 mg Ondansetron HCl (Zofran) 4 mg IVPUSH Q6H PRN PRN Reason: Nausea/Vomiting Last Admin: 01/27/17 04:02 Dose: 4 mg Pantoprazole Sodium (Protonix Iv) 40 mg IVPUSH DAILY [facility] Last Admin: 01/26/17 20:22 Dose: 40 mg Promethazine HCl (Phenergan) 12.5 mg IM Q6H PRN PRN Reason: Nausea Sodium Chloride (Saline Flush) 10 ml FLUSH ASDIRECTED PRN PRN Reason: Keep Vein Open Sodium Chloride (Saline Flush) 2.5 ml FLUSH ASDIRECTED PRN PRN Reason: Keep Vein Open Discontinued Medications Sodium Chloride (Normal Saline) 1,000 mls @ 999 mls/hr IV STAT ONE Stop: 01/26/17 19:15 Last Admin: 01/26/17 18:33 Dose: 999 mls/hr Sodium Chloride (Normal Saline) 1,000 mls @ 999 mls/hr IV STAT ONE Stop: 01/26/17 19:15 Last Admin: 01/26/17 19:06 Dose: Not Given Morphine Sulfate (Morphine) 2 mg IV ONETIME ONE Stop: 01/26/17 19:17 Last Admin: 01/26/17 19:29 Dose: 2 mg Ondansetron HCl (Zofran) 8 mg IVPUSH ONETIME ONE Stop: 01/26/17 18:15 Last Admin: 01/26/17 18:34 Dose: 8 mg
--- NOTE | 2017-01-27 09:18 | PCM.PN ---
- General Info Date of Service: 01/27/17 Admission Dx/Problem (Free Text): Intractable nausea and vomiting, biliary dyskinesia Functional Status: Reports: Other (Patient had 2 episodes of emesis last night. She continues to have nausea this morning.) - Review of Systems General: Reports: Fatigue, Malaise. Denies: Fever, Chills, Appetite Pulmonary: Reports: No Symptoms Cardiovascular: Reports: No Symptoms Gastrointestinal: Reports: Abdominal Pain - Patient Data Vitals - Most Recent: Last Vital Signs Temp 36.4 C 01/27/17 07:57 Pulse 71 01/27/17 07:57 Resp 16 01/27/17 08:39 BP 107/67 01/27/17 07:57 Pulse Ox 99 01/27/17 08:39 Weight - Most Recent: 104.1 kg I&O - Last 24 Hours: Intake & Output 01/26/17 01/27/17 01/27/17 22:59 06:59 14:59 Intake Total 50 832 Output Total 330 Balance 50 502 Med Orders - Current: Current Medications Lactated Ringer's (Ringers, Lactated) 1,000 mls @ 125 mls/hr IV ASDIRECTED [facility] Last Admin: 01/27/17 05:31 Dose: 125 mls/hr Piperacillin Sod/Tazobactam (Sod 3.375 gm/ Sodium Chloride) 50 mls @ 100 mls/ hr IV Q8H [facility] Last Admin: 01/27/17 04:06 Dose: 100 mls/hr Metoclopramide HCl (Reglan) 5 mg IV Q6H PRN PRN Reason: Nausea Morphine Sulfate (Morphine) 2 mg IVPUSH Q1H PRN PRN Reason: Pain (mild 1-3) Last Admin: 01/27/17 04:26 Dose: 2 mg Ondansetron HCl (Zofran) 4 mg IVPUSH Q6H PRN PRN Reason: Nausea/Vomiting Last Admin: 01/27/17 04:02 Dose: 4 mg Pantoprazole Sodium (Protonix Iv) 40 mg IVPUSH DAILY [facility] Last Admin: 01/26/17 20:22 Dose: 40 mg Promethazine HCl (Phenergan) 12.5 mg IM Q6H PRN PRN Reason: Nausea Sodium Chloride (Saline Flush) 10 ml FLUSH ASDIRECTED PRN PRN Reason: Keep Vein Open Sodium Chloride (Saline Flush) 2.5 ml FLUSH ASDIRECTED PRN PRN Reason: Keep Vein Open Discontinued Medications Sodium Chloride (Normal Saline) 1,000 mls @ 999 mls/hr IV STAT ONE Stop: 01/26/17 19:15 Last Admin: 01/26/17 18:33 Dose: 999 mls/hr Sodium Chloride (Normal Saline) 1,000 mls @ 999 mls/hr IV STAT ONE Stop: 01/26/17 19:15 Last Admin: 01/26/17 19:06 Dose: Not Given Morphine Sulfate (Morphine) 2 mg IV ONETIME ONE Stop: 01/26/17 19:17 Last Admin: 01/26/17 19:29 Dose: 2 mg Ondansetron HCl (Zofran) 8 mg IVPUSH ONETIME ONE Stop: 01/26/17 18:15 Last Admin: 01/26/17 18:34 Dose: 8 mg - Exam General: Alert, Oriented, Cooperative, No Acute Distress Lungs: Clear to Auscultation, Normal Respiratory Effort Cardiovascular: Regular Rate, Regular Rhythm GI/Abdominal Exam: Normal Bowel Sounds, Soft, Non-Tender, No Distention - Problem List & Annotations (1) Nausea & vomiting SNOMED Code(s): 96027618 Code(s): R11.2 - NAUSEA WITH VOMITING, UNSPECIFIED Status: Acute Current Visit: No (2) Intractable abdominal pain SNOMED Code(s): 41132338 Code(s): R10.9 - UNSPECIFIED ABDOMINAL PAIN Status: Acute Current Visit: Yes (3) Biliary dyskinesia SNOMED Code(s): 974297801 Code(s): K82.8 - OTHER SPECIFIED DISEASES OF GALLBLADDER Status: Acute Current Visit: Yes - Problem List Review Problem List Initiated/Reviewed/Updated: Yes - My Orders Last 24 Hours: My Active Orders 01/26/17 19:59 Oxygen Therapy [RC] PRN RT Incentive Spirometry [RC] ASDIRECTED Up ad Pat [RC] ASDIRECTED Vital Signs [RC] PER UNIT ROUTINE Metoclopramide [Reglan] 5 mg IV Q6H PRN Morphine 2 mg IVPUSH Q1H PRN Ondansetron [Zofran] 4 mg IVPUSH Q6H PRN Promethazine [Phenergan] 12.5 mg IM Q6H PRN Resuscitation Status Routine 01/26/17 20:00 Intake and Output [RC] Q12H Lactated Ringers [Ringers, Lactated] 1,000 ml IV ASDIRECTED Pantoprazole [ProTONIX IV] 40 mg IVPUSH DAILY 01/26/17 20:30 Piperacillin/Tazobactam [Piperacil-Tazobact] 3.375 gm Sodium Chloride 0.9% [ Normal Saline] 50 ml IV Q8H 01/26/17 Dinner Nothing Per Oral Diet [DIET] - Plan Plan:: Will proceed today with laparoscopic cholecystectomy. Continue nothing by mouth , maintenance IV fluids, Zosyn, and when necessary Zofran and Compazine and Reglan as needed for nausea and vomiting. Will attempt to advance diet after surgery. H. pylori test was negative. Will transition patient to pantoprazole postoperatively.
[2017-01-27] MEDS: Pantoprazole 40 MG Vial IVPUSH SCH (09:20)
--- NOTE | 2017-01-27 11:05 | US ---
EXAM DATE: 01/26/17 PATIENT'S AGE: 21 Patient: MARISSA LUCERO Facility: [place], [place] Site . Site : [id number] Study: US Abdomen Right -01/26/2017 7:11:25 PM Ordering Physician: Doctor Cortes Final Report: INDICATION: Right upper quadrant abdominal pain. Comparison: Ultrasound examination of the abdomen right upper quadrant January 31, 2013. Technique: Ultrasound examination of the right upper quadrant of the abdomen. Findings: No focal hepatic pathology. Liver is measuring 19.1 cm in the maximum vertical dimension. No evidence of cholelithiasis. Gallbladder wall is measuring 2 mm in thickness without any pericholecystic fluid collections. Nondilated common bile duct measuring 2.2 mm in diameter. No pancreatic pathology. No evidence of abdominal ascites. Right kidney is measuring 12.4 cm in the maximum vertical dimension without any obstructive uropathy or perinephric pathology. The tail of the pancreas is not adequately delineated secondary to increased bowel gas in the upper abdomen. Impression: 1. No focal hepatic pathology. 2. Mild hepatomegaly. 3. No evidence of cholelithiasis. 4. Sonographic Sandra`s sign is negative. 5. Nondilated common bile duct. Dictated by Oscar Galvan MD @ Jan 26 2017 7:48PM (Electronic Signature) Report Signed by Proxy. CADENCE
[2017-01-27] MEDS ORDERED: Midazolam 1 MG/ML 2 ML SDV ONE (11:19)
[2017-01-27] MEDS ORDERED: fentaNYL 100 MCG/2 ML SDV ONE ×2 (11:19→14:07)
[2017-01-27] MEDS ORDERED: Propofol 200 MG/20 ML SDV ONE (11:19)
[2017-01-27] MEDS ORDERED: Dexamethasone 4 MG/ML 5 ML MDV ONE (11:22)
[2017-01-27] MEDS ORDERED: Ondansetron 4 MG/2 ML SDV ONE (11:22)
[2017-01-27] MEDS ORDERED: Neostigmine Methylsulfate 1 MG/ML 5 ML Syringe ONE (11:25)
[2017-01-27] MEDS ORDERED: Rocuronium 10 MG/ML 10 ML Syringe ONE (11:25)
[2017-01-27] MEDS ORDERED: Succinylcholine/Normal Saline 200 MG/10 ML Syringe ONE (11:25)
[2017-01-27] MEDS ORDERED: Bupivacaine 0.5% 30 ML SDV ONE (12:11)
[2017-01-27] MEDS ORDERED: Phenylephrine/Normal Saline 100 MCG/ML 10 ML Syringe ONE (13:40)
[2017-01-27] MEDS ORDERED: Ketorolac 30 MG/ML SDV ONE (14:29)
--- NOTE | 2017-01-27 14:32 | PCM.OPNOTE ---
- General Post-Op/Procedure Note Date of Surgery/Procedure: 01/27/17 Operative Procedure(s): Laparoscopic cholecystectomy Findings: Moderately distended and inflamed gallbladder. Pre Op Diagnosis: Biliary dyskinesia Post-Op Diagnosis: Biliary dyskinesia, acute cholecystitis Anesthesia Technique: General ET Tube Primary Surgeon: Rachna Lawrence Fluid Replacement, Intraop: 1,100 Output, Urine Amount: 250 EBL in mLs: 10 Condition: Fair Free Text/Narrative:: Intake & Output 01/26/17 01/27/17 01/27/17 22:59 06:59 14:59 Intake Total 50 832 Output Total 330 250 Balance 50 502 -250
[2017-01-27] MEDS: fentaNYL 100 MCG/2 ML SDV IVPUSH PRN ×4 (14:37→15:00)
[2017-01-27] MEDS ORDERED: Scopolamine 1.5 MG Transdermal Patch TOP ONE (14:40)
[2017-01-27] MEDS ORDERED: Cyclobenzaprine 10 MG Tab PO PRN (14:43)
[2017-01-27] MEDS ORDERED: HYDROmorphone 1 MG/ML Syringe IVPUSH PRN (14:44)
--- NOTE | 2017-01-27 15:24 | PCM.POSTAN ---
POST ANESTHESIA ASSESSMENT - MENTAL STATUS Mental Status: Alert, Oriented - RESPIRATORY Respiratory Status: Respiratory Rate WNL, Airway Patent, O2 Saturation Stable - CARDIOVASCULAR CV Status: Pulse Rate WNL, Blood Pressure Stable - GASTROINTESTINAL GI Status: No Symptoms - PAIN Pain Score: 6 - POST OP HYDRATION Hydration Status: Adequate & Stable - OBSERVATIONS Free Text/Narrative:: no anesthesia problems
[2017-01-27] MEDS: Acetaminophen/oxyCODONE 325-5 MG Tab PO PRN (20:07)
--- NOTE | 2017-01-27 20:57 | OR ---
SURGEON: KEVEN ALMONTE MD DATE OF PROCEDURE: 01/27/2017 PREOPERATIVE DIAGNOSIS: Biliary dyskinesia. POSTOPERATIVE DIAGNOSES: 1. Biliary dyskinesia. 2. Acute cholecystitis. PROCEDURE PERFORMED: Laparoscopic cholecystectomy. ANESTHESIA: General endotracheal anesthesia. FLUIDS: 1100 mL crystalloid. ESTIMATED BLOOD LOSS: 10 mL. URINE OUTPUT: 250 mL. FINDINGS: Moderately inflamed and enlarged gallbladder. COMPLICATIONS: None. INDICATIONS: The patient is a 21-year-old female who had previously seen me in clinic with postprandial right upper quadrant pain. A HIDA scan had shown a decreased ejection fraction, and she was scheduled to have her gallbladder removed at the end of the month. The patient presented to the emergency room on January 24 complaining of severe and constant right upper quadrant pain with nausea and vomiting. Labs were performed at that time that were all within normal limits. She was given antinausea medication and oral narcotics and sent home. The patient continued to have symptoms despite these medications over the weekend and re-presented to the emergency room last night. All of her labs appeared normal again, and her right upper quadrant ultrasound did not show any evidence of acute cholecystitis. Given the intractability of her nausea, vomiting, and pain, the decision was made to admit her to the hospital for IV resuscitation, pain control, and removal of the gallbladder. The patient and I had previously spoken about laparoscopic versus open cholecystectomy. I explained again the procedure, expected perioperative course, and risks including bleeding, infection, and damage to surrounding structures. The patient understands that should I be unable to perform this safely laparoscopically, we will convert to an open procedure. The patient verbalized understanding and wishes to proceed. PROCEDURE IN DETAIL: The patient was brought into the OR and placed on the OR table in a supine position. A time-out was completed verifying the patient's name, age, date of , allergies, and procedure to be performed. General endotracheal anesthesia was induced. The patient's left arm was tucked at her side, and a Garcia catheter placed. The abdomen was prepped and draped in the usual sterile fashion. The infraumbilical fold was anesthetized with 0.5% Marcaine plain. A 15 blade was used to make an incision along the infraumbilical fold. Cautery was used to dissect down to the level of the subcutaneous fat. Army-Wolbach retractors were used to dissect down to the level of the fascia. The fascia was elevated with Luciano's and incised sharply with the scissors. The peritoneum was identified and elevated using hemostats. Metzenbaum scissors was then used to obtain entry into the abdomen. A 12 mm Selma trocar was placed through this defect in the fascia, and the abdomen allowed to insufflate. To secure the trocar in place, 2-0 Vicryl sutures were placed on either side of the fascia. A 5 mm 30-degree scope was inserted in the abdomen, and the area underneath my initial trocar site was inspected. There was no evidence of damage to any surrounding structures. 5 mm trocars were placed then under direct visualization in the following locations: One in the epigastric area, one along the right subcostal margin slightly lateral to the midclavicular line, and one in the right flank. The patient was placed into reverse Trendelenburg position and air-planed slightly to the left. The dome of the gallbladder was grasped with an atraumatic grasper through the right lateral port and lifted above the dome of the liver. The infundibulum was grasped with an atraumatic grasper and directed caudally and lateral. The peritoneum overlying the cystic duct and artery was gently dissected away using a combination of gentle blunt dissection, a [place] dissector, and a right-angle hook cautery. Once my critical view was achieved, I doubly clipped and ligated the cystic duct and artery. The gallbladder was then removed from the gallbladder fossa using electrocautery. There was edema along the gallbladder fossa and at one point, I got into the back wall of the gallbladder and bile was spilled in the abdomen. I was able to get back into the correct plane and remove the gallbladder in its entirety. The gallbladder was placed in an EndoCatch bag and removed through the 12 mm port site. I then re-inspected the operative field, and it appeared to be hemostatic. I irrigated the abdomen copiously with 2 L of normal saline until it ran clear. I then re-inspected my clips and did not note any bile leakage or bleeding from them. The trocars were then removed under direct visualization, and the abdomen was allowed to de-sufflate. The fascia at the infraumbilical site was closed with interrupted 0 Vicryl sutures. The skin was then closed with interrupted 3-0 Vicryl in the subcutaneous fat and a running 4-0 Monocryl suture along the skin. The 5 mm port sites were then closed with interrupted 4- 0 Monocryl sutures. Steri-Strips and sterile dressings were applied. The patient tolerated the procedure well and was taken to the PACU in stable condition. ALEX CHAPMAN /[id number] CADENCE
[2017-01-28] MEDS: Acetaminophen/oxyCODONE 325-5 MG Tab PO PRN ×2 (07:05→12:07)
[2017-01-28] MEDS: Pantoprazole 40 MG Vial IVPUSH SCH (09:17)
--- NOTE | 2017-01-28 09:30 | PCM.DCSUM1 ---
Discharge Summary - Hospital Course Free Text/Narrative:: Patient is a 21 year old female who presented to the ED with intractable nausea , vomiting, and RUQ pain. She had known biliary dyskinesia and was scheduled to have her GB out at the end of the month. The patient was admitted to the hospital and resuscitated. The next day she was taken for a laparoscopic cholecystectomy. The gallbladder was moderately distended and inflamed. The case went well. She had nausea and one episode of vomiting post op. She was advanced to a clear liquid diet. She tolerated this well. Her VSS and she was advanced to regular diet this am with no issues. Her abdomen is soft and dressings are dry and intact. Pain is well controlled on po meds. She will discharge home. - Discharge Data Discharge Date: 01/28/17 Discharge Disposition: Home, Self-Care 01 Condition: Fair - Discharge Diagnosis/Problem(s) (1) Nausea & vomiting SNOMED Code(s): 94297990 ICD Code: R11.2 - NAUSEA WITH VOMITING, UNSPECIFIED Status: Acute Current Visit: No (2) Intractable abdominal pain SNOMED Code(s): 11343464 ICD Code: R10.9 - UNSPECIFIED ABDOMINAL PAIN Status: Acute Current Visit : Yes (3) Biliary dyskinesia SNOMED Code(s): 494794294 ICD Code: K82.8 - OTHER SPECIFIED DISEASES OF GALLBLADDER Status: Acute Current Visit: Yes - Patient Summary/Data Operative Procedure(s) Performed: Laparoscopic cholecystectomy - Patient Instructions Diet: Regular Diet as Tolerated Activity: No Lifting Over 20 Pounds (for one moth ), Rest and Relax Today Driving: Do Not Drive Showering/Bathing: No Showering (until tomorrow), No Tub Bathing/Swimming (for 2 weeks ) Wound/Incision Care: Keep Operative Site/Wound Site Clean and Dry Notify Provider of: Fever, Increased Pain, Swelling and Redness, Drainage, Nausea and/or Vomiting - Discharge Plan Home Medications: Home Meds Escitalopram Oxalate [Lexapro] 5 mg PO DAILY 01/24/17 [History] Metoclopramide [Reglan] 10 mg PO Q8H 7 Days #21 tablet 01/25/17 [Rx] Hydrocodone/Acetaminophen [[place] 5-325] 1 tab PO ASDIRECTED PRN 01/26/17 [ History] Forms: ED Department Discharge Referrals: Shanel Olvera DO [Primary Care Provider] - - General Info Functional Status: Reports: Pain Controlled, Tolerating Diet, Ambulating, Urinating - Review of Systems General: Reports: No Symptoms Pulmonary: Reports: No Symptoms Cardiovascular: Reports: No Symptoms Gastrointestinal: Reports: No Symptoms - Patient Data Vitals - Most Recent: Last Vital Signs Temp 36.7 C 01/28/17 08:00 Pulse 72 01/28/17 08:00 Resp 16 01/28/17 08:00 BP 110/59 L 01/28/17 08:00 Pulse Ox 97 01/28/17 08:00 Weight - Most Recent: 104.1 kg I&O - Last 24 hours: Intake & Output 01/27/17 01/28/17 01/28/17 22:59 06:59 14:59 Intake Total 1650 1470 Output Total 330 1630 Balance 1320 -160 Med Orders - Current: Current Medications Cyclobenzaprine HCl (Flexeril) 10 mg PO BID PRN PRN Reason: Muscle Spasm Hydromorphone HCl (Dilaudid) 1 mg IVPUSH Q2H PRN PRN Reason: Abdominal Pain Last Admin: 01/27/17 18:45 Dose: 1 mg Metoclopramide HCl (Reglan) 5 mg IV Q6H PRN PRN Reason: Nausea Last Admin: 01/27/17 09:20 Dose: 5 mg Ondansetron HCl (Zofran) 4 mg IVPUSH Q6H PRN PRN Reason: Nausea/Vomiting Last Admin: 01/27/17 20:02 Dose: 4 mg Oxycodone/Acetaminophen (Percocet 325-5 Mg) 2 tab PO Q4H PRN PRN Reason: Abdominal Pain Last Admin: 01/28/17 07:05 Dose: 2 tab Pantoprazole Sodium (Protonix Iv) 40 mg IVPUSH DAILY MARINE Last Admin: 01/28/17 09:17 Dose: 40 mg Promethazine HCl (Phenergan) 12.5 mg IM Q6H PRN PRN Reason: Nausea Sodium Chloride (Saline Flush) 10 ml FLUSH ASDIRECTED PRN PRN Reason: Keep Vein Open Sodium Chloride (Saline Flush) 2.5 ml FLUSH ASDIRECTED PRN PRN Reason: Keep Vein Open Discontinued Medications Bupivacaine HCl (Marcaine 0.5%) Confirm Administered Dose 30 ml .ROUTE .STK-MED ONE Stop: 01/27/17 12:12 Dexamethasone (Dexamethasone) Confirm Administered Dose 20 mg .ROUTE .STK-MED ONE Stop: 01/27/17 11:23 Fentanyl (Sublimaze) Confirm Administered Dose 100 mcg .ROUTE .STK-MED ONE Stop: 01/27/17 11:20 Fentanyl (Sublimaze) 50 mcg IVPUSH Q5M PRN PRN Reason: Pain (moderate 4-6) Stop: 01/27/17 16:00 Last Admin: 01/27/17 15:00 Dose: 50 mcg Fentanyl (Sublimaze) Confirm Administered Dose 100 mcg .ROUTE .STK-MED ONE Stop: 01/27/17 14:08 Glycopyrrolate () Confirm Administered Dose 1 mg .ROUTE .STK-MED ONE Stop: 01/27/17 11:26 Sodium Chloride (Normal Saline) 1,000 mls @ 999 mls/hr IV STAT ONE Stop: 01/26/17 19:15 Last Admin: 01/26/17 18:33 Dose: 999 mls/hr Sodium Chloride (Normal Saline) 1,000 mls @ 999 mls/hr IV STAT ONE Stop: 01/26/17 19:15 Last Admin: 01/26/17 19:06 Dose: Not Given Lactated Ringer's (Ringers, Lactated) 1,000 mls @ 125 mls/hr IV ASDIRECTED [facility] Last Admin: 01/27/17 05:31 Dose: 125 mls/hr Piperacillin Sod/Tazobactam (Sod 3.375 gm/ Sodium Chloride) 50 mls @ 100 mls/ hr IV Q8H [facility] Last Admin: 01/27/17 11:55 Dose: 100 mls/hr Ketorolac Tromethamine (Toradol) Confirm Administered Dose 30 mg .ROUTE .STK- MED ONE Stop: 01/27/17 14:30 Lidocaine HCl (Xylocaine-Mpf 1%) Confirm Administered Dose 5 ml .ROUTE .STK-MED ONE Stop: 01/27/17 11:23 Midazolam HCl (Versed 1 Mg/Ml) Confirm Administered Dose 2 mg .ROUTE .STK-MED ONE Stop: 01/27/17 11:20 Morphine Sulfate (Morphine) 2 mg IV ONETIME ONE Stop: 01/26/17 19:17 Last Admin: 01/26/17 19:29 Dose: 2 mg Morphine Sulfate (Morphine) 2 mg IVPUSH Q1H PRN PRN Reason: Pain (mild 1-3) Last Admin: 01/27/17 09:40 Dose: 2 mg Neostigmine Methylsulfate (Neostigmine) Confirm Administered Dose 5 mg .ROUTE .STK-MED ONE Stop: 01/27/17 11:26 Ondansetron HCl (Zofran) 8 mg IVPUSH ONETIME ONE Stop: 01/26/17 18:15 Last Admin: 01/26/17 18:34 Dose: 8 mg Ondansetron HCl (Zofran) Confirm Administered Dose 4 mg .ROUTE .STK-MED ONE Stop: 01/27/17 11:23 Phenylephrine HCl (Phenylephrine In Ns 100 Mcg/Ml) Confirm Administered Dose 1 mg .ROUTE .STK-MED ONE Stop: 01/27/17 13:41 Propofol (Diprivan 20 Ml) Confirm Administered Dose 200 mg .ROUTE .STK-MED ONE Stop: 01/27/17 11:20 Rocuronium Jerome (Zemuron) Confirm Administered Dose 100 mg .ROUTE .STK-MED ONE Stop: 01/27/17 11:26 Scopolamine (Transderm-Scop) 1.5 mg TOP ONETIME ONE Stop: 01/27/17 14:41 Last Admin: 01/27/17 15:31 Dose: 1.5 mg Succinylcholine Chloride (Succinylcholine In Ns Pf) Confirm Administered Dose 200 mg .ROUTE .STK-MED ONE Stop: 01/27/17 11:26 - Exam General: Reports: Alert, Oriented Neck: Reports: Trachea Midline Lungs: Reports: Normal Respiratory Effort Cardiovascular: Reports: Regular Rate GI/Abdominal Exam: Soft, Non-Tender, No Distention Extremities: Normal Inspection Skin: Reports: Warm, Dry, Intact Wound/Incisions: Reports: Healing Well, Dressing Dry and Intact *Q Meaningful Use (DIS) - VTE *Q VTE Criteria *Q: - Stroke *Q Stroke Criteria *Q: - AMI *Q AMI Criteria *Q:
--- NOTE | 2017-01-28 12:01 | PCM48HPAN ---
Post Anesthesia Note - EVALUATION WITHIN 48HRS OF ANESTHETIC Vital Signs in Normal Range: Yes Patient Participated in Evaluation: Yes Respiratory Function Stable: Yes Airway Patent: Yes Cardiovascular Function Stable: Yes Hydration Status Stable: Yes Pain Control Satisfactory: Yes Nausea and Vomiting Control Satisfactory: Yes Mental Status Recovered: Yes - COMMENTS/OBSERVATIONS Free Text/Narrative:: States ate breakfast and waiting for lunch. Denies complaints.
[2017-01-28 12:15] VITALS: BP 111/57
== END 2017-01-28 12:40 | disposition home or self-care (01) ==
LOC: MW.ED 17:36 → MW.MS 19:43
PROVIDERS: ADMIT Surgery; ATTEND Surgery
DX: K82.8 Other specified diseases of gallbladder (principal); K81.0 Acute cholecystitis; K21.9 Gastro-esophageal reflux disease without esophagitis; F32.9 Major depressive disorder, single episode, unspecified; D68.0 Von Willebrand disease; Z90.89 Acquired absence of other organs; Z79.899 Other long term (current) drug therapy; Z98.890 Other specified postprocedural states
CPT/HCPCS: 36415; 47562; 76705; 80053; 85025; 86677; 96361; 96365; 96366; 96375; 96376; 99285; A9270; C9113; G0378; J1100; J1170; J1885; J2250; J2270; J2405; J2543; J2765; J3010; J7040; J7050; J7120; 00790; 88304; 96374; 99283; J2704

== ENCOUNTER 2017-07-06 21:53 | Emergency (ER) | payer BC ==
[2017-07-07 07:39] VITALS: BP 127/87
--- NOTE | 2017-07-07 13:47 | CR ---
EXAM DATE: 07/06/17 PATIENT'S AGE: 21 Patient: MARISSA LUCERO Facility: [place], [place] Site . Site : 1995 Study: XRay Extremity [id number]/7/2018 10:30:43 PM Ordering Physician: Kacy Donaldson NP Final Report: Indication: Injury and pain Technique: Right 5th toe three views Comparison: None Findings: Bones: Alignment is normal. No fractures or bone lesions. Joint spaces: Unremarkable. Soft tissues: Unremarkable. Impression: No sign of acute injury. Dictated by Jimmy Rawls MD @ Jul 06 2017 10:53PM (Electronic Signature) Report Signed by Proxy. CADENCE
== END 2017-07-06 23:05 | disposition home or self-care (01) ==
LOC: MW.ED 21:53
DX: S90.121A Contusion of right lesser toe(s) without damage to nail, initial encounter (principal); W22.8XXA Striking against or struck by other objects, initial encounter
CPT/HCPCS: 73660-26-T9; 73660-T9; 99283

== ENCOUNTER 2018-10-29 14:38 | Observation (INO) | payer BC | END 2018-10-29 16:40 | disposition home or self-care (01) | LOC: MW.OB 14:38 | PROVIDERS: ADMIT Obstetrics & Gynecology; ATTEND Obstetrics & Gynecology | DX: O99.343 Other mental disorders complicating pregnancy, third trimester (principal); R51 Headache; R42 Dizziness and giddiness; H53.9 Unspecified visual disturbance; Z3A.36 36 weeks gestation of pregnancy | CPT/HCPCS: 59025; 81003 ==

== ENCOUNTER 2018-11-19 00:01 | Inpatient (IN) | payer BC ==
[2018-11-19] MEDS ORDERED: Sodium Chloride 0.9% 10 ML SDV IV PRN (00:19)
[2018-11-19] MEDS ORDERED: Lidocaine 1% 50 ML MDV INJECT PRN (00:19)
[2018-11-19] MEDS ORDERED: Terbutaline 1 MG/ML SDV SUBCUT PRN (00:19)
[2018-11-19] MEDS ORDERED: Nalbuphine 10 MG/1 ML Vial IVPUSH PRN (00:19)
[2018-11-19] MEDS ORDERED: Misoprostol 200 MCG Tab PO PRN (00:19)
[2018-11-19] MEDS ORDERED: Sodium Chloride 0.9% 2.5 ML Syringe FLUSH PRN (00:19)
[2018-11-19] MEDS ORDERED: Misoprostol 25 MCG (1/4 of 100 MCG) Tab VAG PRN ×2 (00:19)
[2018-11-19] MEDS ORDERED: Butorphanol 1 MG/ML SDV IVPUSH PRN (00:19)
[2018-11-19] MEDS ORDERED: Methylergonovine 0.2 MG/1 ML Amp IM PRN ×2 (00:19→11:08)
[2018-11-19] MEDS ORDERED: Tranexamic Acid 1,000 MG in Sodium Chloride 0.9% 100 ML IV PRN (00:19)
[2018-11-19] MEDS ORDERED: Sodium Chloride 0.9% 10 ML Syringe FLUSH PRN (00:19)
[2018-11-19] MEDS ORDERED: Carboprost Tromethamine 250 MCG/1 ML Amp IM PRN (00:19)
[2018-11-19] MEDS ORDERED: Water For Irrigation,Sterile 1,000 ML Container IRR PRN (00:19)
[2018-11-19] MEDS ORDERED: Oxytocin/0.9 % Sodium Chloride 30 UNIT/500 ML BAG IV SCH ×2 (00:30)
[2018-11-19] MEDS ORDERED: Lactated Ringers 1,000 ML IV SCH (00:30)
[2018-11-19] MEDS ORDERED: Ondansetron 4 MG/2 ML SDV IVPUSH PRN (05:54)
[2018-11-19] MEDS ORDERED: fentaNYL 100 MCG/2 ML SDV ONE (08:59)
[2018-11-19] MEDS ORDERED: Ropivacaine 0.2% 2 MG/ML 20 ML SDV ONE (09:01)
--- NOTE | 2018-11-19 11:04 | PCM.PREANE ---
Preanesthetic Assessment - Anesthesia/Transfusion/Family Hx Anesthesia History: Prior Anesthesia Without Reaction Family History of Anesthesia Reaction: No Transfusion History: No Prior Transfusion(s) - Review of Systems General: No Symptoms Pulmonary: No Symptoms Cardiovascular: No Symptoms Gastrointestinal: Abdominal Pain Neurological: No Symptoms Other: Reports: None - Physical Assessment NPO Status Date: 11/19/18 Height: 5 ft 9 in Weight: 117.48 kg ASA Class: 2 Mental Status: Alert & Oriented x3 Airway Class: Mallampati = 2 Dentition: Reports: Normal Dentition ROM/Head Extension: Full Lungs: Clear to Auscultation, Normal Respiratory Effort Cardiovascular: Regular Rate, Regular Rhythm - Lab Values: Laboratory Last Values WBC 8.73 K/uL (4.0-11.0) 11/19/18 00:52 RBC 3.95 M/uL (4.30-5.90) L 11/19/18 00:52 Hgb 12.4 g/dL (12.0-16.0) 11/19/18 00:52 Hct 36.1 % (36.0-46.0) 11/19/18 00:52 MCV 91.4 fL (80.0-98.0) 11/19/18 00:52 MCH 31.4 pg (27.0-32.0) 11/19/18 00:52 MCHC 34.3 g/dL (31.0-37.0) 11/19/18 00:52 RDW Std Deviation 46.8 fl (28.0-62.0) 11/19/18 00:52 RDW Coeff of Noy 14 % (11.0-15.0) 11/19/18 00:52 Plt Count 158 K/uL (150-400) 11/19/18 00:52 MPV 12.70 fL (7.40-12.00) H 11/19/18 00:52 Nucleated RBC % 0.0 /100WBC 11/19/18 00:52 Nucleated RBCs # 0 K/uL 11/19/18 00:52 Blood Type A NEGATIVE 11/19/18 00:52 Antibody Screen NEGATIVE 11/19/18 00:52 - Allergies Allergies/Adverse Reactions: Allergies Allergy/AdvReac Type Severity Reaction Status Date / Time No Known Allergies Allergy Verified 07/07/17 06:01 - Blood Blood Available: No - Anesthesia Plan Pre-Op Medication Ordered: None - Acknowledgements Anesthesia Type Planned: Epidural Pt an Appropriate Candidate for the Planned Anesthesia: Yes Alternatives and Risks of Anesthesia Discussed w Pt/Guardian: Yes Pt/Guardian Understands and Agrees with Anesthesia Plan: Yes Additional Comments: PMH: antiphospho lipid syndrome, on anticoagulants-- last dose was unfractionated heparin 36 hrs ago PLAN: epidural PreAnesthesia Questionnaire HEENT History: Reports: Impaired Vision Cardiovascular History: Reports: None Respiratory History: Reports: None Gastrointestinal History: Reports: GERD Genitourinary History: Reports: Other (See Below) Other Genitourinary History: hydronephrosis JELLY MAKER History: Reports: , Spontaneous Musculoskeletal History: Reports: Fracture Neurological History: Reports: None Psychiatric History: Reports: Anxiety, Depression Endocrine/Metabolic History: Reports: Other (See Below) Other Endocrine/Metabolic History: hypoglycemia Hematologic History: Reports: Other (See Below) Other Hematologic History: von [place] Immunologic History: Reports: None Oncologic (Cancer) History: Reports: None Dermatologic History: Reports: None - Infectious Disease History Infectious Disease History: Reports: Chicken Pox - Past Surgical History HEENT Surgical History: Reports: Adenoidectomy, Oral Surgery, Tonsillectomy Female Surgical History: Reports: None - SUBSTANCE USE Smoking Status *Q: Never Smoker Second Hand Smoke Exposure: No Recreational Drug Use History: No - HOME MEDS Home Medications: Home Meds Escitalopram Oxalate [Lexapro] 5 mg PO DAILY 01/24/17 [History] Metoclopramide [Reglan] 10 mg PO Q8H 7 Days #21 tablet 01/25/17 [Rx] Hydrocodone/Acetaminophen [[place] 5-325] 1 tab PO ASDIRECTED PRN 01/26/17 [ History] - CURRENT (IN HOUSE) MEDS Current Meds: Current Medications Butorphanol Tartrate (Stadol) 1 mg IVPUSH Q1H PRN PRN Reason: Pain Carboprost Tromethamine (Hemabate Ds) 250 mcg IM ASDIRECTED PRN PRN Reason: Post Hemorrhage Lactated Ringer's (Ringers, Lactated) 1,000 mls @ 150 mls/hr IV ASDIRECTED MARINE Oxytocin/Sodium Chloride (Oxytocin 30 Unit/500 Ml-Ns) 30 unit in 500 mls @ 999 mls/hr IV TITRATE MARINE Oxytocin/Sodium Chloride (Oxytocin 30 Unit/500 Ml-Ns) 30 unit in 500 mls @ 2 mls/hr IV TITRATE MARINE; Protocol Last Titration: 11/19/18 10:10 Dose: 8 munits/min, 8 mls/hr Tranexamic Acid 1,000 mg/ (Sodium Chloride) 110 mls @ 660 mls/hr IV ONETIME PRN PRN Reason: Bleeding Lidocaine HCl (Xylocaine 1%) 50 ml INJECT ONETIME PRN PRN Reason: Laceration repair Methylergonovine Maleate (Methergine) 0.2 mg IM ASDIRECTED PRN PRN Reason: Post Hemorrhage Misoprostol (Cytotec) 200 mcg PO ONETIME PRN PRN Reason: Post Hemorrhage Misoprostol (Cytotec) 25 mcg VAG ONETIME PRN PRN Reason: Cervical Ripening Last Admin: 11/19/18 01:40 Dose: 25 mcg Misoprostol (Cytotec) 25 mcg VAG Q6H PRN PRN Reason: Cervical Ripening Nalbuphine HCl (Nubain) 10 mg IVPUSH Q1H PRN PRN Reason: Pain (severe 7-10) Ondansetron HCl (Zofran) 4 mg IVPUSH Q6H PRN PRN Reason: Nausea/Vomiting Last Admin: 11/19/18 06:00 Dose: 4 mg Sodium Chloride (Saline Flush) 10 ml FLUSH ASDIRECTED PRN PRN Reason: Keep Vein Open Sodium Chloride (Saline Flush) 2.5 ml FLUSH ASDIRECTED PRN PRN Reason: Keep Vein Open Sodium Chloride (Normal Saline) 10 ml IV ASDIRECTED PRN PRN Reason: IV Use Sterile Water (Sterile Water For Irrigation) 1,000 ml IRR ASDIRECTED PRN PRN Reason: delivery Terbutaline Sulfate (Brethine) 0.25 mg SUBCUT ASDIRECTED PRN PRN Reason: Tacysystole Discontinued Medications Fentanyl (Sublimaze) Confirm Administered Dose 100 mcg .ROUTE .STK-MED ONE Stop: 11/19/18 09:00 Fentanyl/Bupivacaine HCl (Yillkqgv-Uzruv-Tc 2 Mcg/Ml-0.125%) Confirm Administered Dose 100 mls @ as directed .ROUTE .STK-MED ONE Stop: 11/19/18 09:01 Ropivacaine (Naropin 0.2%) Confirm Administered Dose 20 ml .ROUTE .[facility]-MED ONE Stop: 11/19/18 09:02
[2018-11-19] MEDS ORDERED: Witch Hazel Medicated Pads 40/Jar TOP PRN (11:08)
[2018-11-19] MEDS ORDERED: Benzocaine/Menthol 20%-0.5% Spray 78 GM Cannister TOP PRN (11:08)
[2018-11-19] MEDS ORDERED: Docusate Sodium 100 MG Cap PO PRN (11:08)
[2018-11-19] MEDS ORDERED: Acetaminophen 500 MG Tab PO PRN (11:08)
[2018-11-19] MEDS ORDERED: Lanolin 100% Cream 7 GM Tube TOP PRN (11:08)
[2018-11-19] MEDS ORDERED: oxyCODONE 5 MG Tab PO PRN (11:08)
[2018-11-19] MEDS ORDERED: Bisacodyl 10 MG Supp RECTAL PRN (11:08)
--- NOTE | 2018-11-19 11:08 | PCM.DEL ---
L & D Note - General Info Date of Service: 11/19/18 Mother's Due Date: 11/19/18 - Delivery Note Cervical Ripening Method: Misoprostil, Oxytocin Delivery Outcome: Livebirth Infant Delivery Method: Spontaneous Vaginal Delivery-Single Presentation: Left Occiput Anterior (JOSY) Nuchal Cord: Present, Reduced Prep: Other Anesthesia Type: Epidural Amniotic Fluid Description: Clear Episiotomy Type: None Laceration: None Placenta: Intact, Spontaneous Cord: 3 Vessels Estimated Blood Loss: 100 Resuscitation Needed: No [place]: Suctioned Score 1 min: 7 Score 5 min: 8 Delivery Comments (Free Text/Narrative):: Liveborn male weight pending. - General Info Date of Service: 11/19/18 - Patient Data Weight - Most Recent: 117.48 kg Lab Results Last 24 Hours: Laboratory Results - last 24 hr 11/19/18 11/19/18 Range/Units 00:52 00:52 WBC 8.73 (4.0-11.0) K/uL RBC 3.95 L (4.30-5.90) M/uL Hgb 12.4 (12.0-16.0) g/dL Hct 36.1 (36.0-46.0) % MCV 91.4 (80.0-98.0) fL MCH 31.4 (27.0-32.0) pg MCHC 34.3 (31.0-37.0) g/dL RDW Std Deviation 46.8 (28.0-62.0) fl RDW Coeff of Noy 14 (11.0-15.0) % Plt Count 158 (150-400) K/uL MPV 12.70 H (7.40-12.00) fL Nucleated RBC % 0.0 /100WBC Nucleated RBCs # 0 K/uL Blood Type A NEGATIVE Antibody Screen NEGATIVE Med Orders - Current: Current Medications Butorphanol Tartrate (Stadol) 1 mg IVPUSH Q1H PRN PRN Reason: Pain Carboprost Tromethamine (Hemabate Ds) 250 mcg IM ASDIRECTED PRN PRN Reason: Post Hemorrhage Lactated Ringer's (Ringers, Lactated) 1,000 mls @ 150 mls/hr IV ASDIRECTED MARINE Oxytocin/Sodium Chloride (Oxytocin 30 Unit/500 Ml-Ns) 30 unit in 500 mls @ 999 mls/hr IV TITRATE MARINE Oxytocin/Sodium Chloride (Oxytocin 30 Unit/500 Ml-Ns) 30 unit in 500 mls @ 2 mls/hr IV TITRATE MARINE; Protocol Last Titration: 11/19/18 10:10 Dose: 8 munits/min, 8 mls/hr Tranexamic Acid 1,000 mg/ (Sodium Chloride) 110 mls @ 660 mls/hr IV ONETIME PRN PRN Reason: Bleeding Lidocaine HCl (Xylocaine 1%) 50 ml INJECT ONETIME PRN PRN Reason: Laceration repair Methylergonovine Maleate (Methergine) 0.2 mg IM ASDIRECTED PRN PRN Reason: Post Hemorrhage Misoprostol (Cytotec) 200 mcg PO ONETIME PRN PRN Reason: Post Hemorrhage Misoprostol (Cytotec) 25 mcg VAG ONETIME PRN PRN Reason: Cervical Ripening Last Admin: 11/19/18 01:40 Dose: 25 mcg Misoprostol (Cytotec) 25 mcg VAG Q6H PRN PRN Reason: Cervical Ripening Nalbuphine HCl (Nubain) 10 mg IVPUSH Q1H PRN PRN Reason: Pain (severe 7-10) Ondansetron HCl (Zofran) 4 mg IVPUSH Q6H PRN PRN Reason: Nausea/Vomiting Last Admin: 11/19/18 06:00 Dose: 4 mg Sodium Chloride (Saline Flush) 10 ml FLUSH ASDIRECTED PRN PRN Reason: Keep Vein Open Sodium Chloride (Saline Flush) 2.5 ml FLUSH ASDIRECTED PRN PRN Reason: Keep Vein Open Sodium Chloride (Normal Saline) 10 ml IV ASDIRECTED PRN PRN Reason: IV Use Sterile Water (Sterile Water For Irrigation) 1,000 ml IRR ASDIRECTED PRN PRN Reason: delivery Terbutaline Sulfate (Brethine) 0.25 mg SUBCUT ASDIRECTED PRN PRN Reason: Tacysystole Discontinued Medications Fentanyl (Sublimaze) Confirm Administered Dose 100 mcg .ROUTE .STK-MED ONE Stop: 11/19/18 09:00 Fentanyl/Bupivacaine HCl ([id number]-Vwwpq-[id number] 2 Mcg/Ml-0.125%) Confirm Administered Dose 100 mls @ as directed .ROUTE .STK-MED ONE Stop: 11/19/18 09:01 Ropivacaine (Naropin 0.2%) Confirm Administered Dose 20 ml .ROUTE .STK-MED ONE Stop: 11/19/18 09:02 - Problem List & Annotations (1) Vaginal delivery SNOMED Code(s): 201905274 Code(s): O80 - ENCOUNTER FOR FULL-TERM UNCOMPLICATED DELIVERY Status: Acute Current Visit: Yes - Problem List Review Problem List Initiated/Reviewed/Updated: Yes - My Orders Last 24 Hours: My Active Orders 11/19/18 00:19 Butorphanol [Stadol] 1 mg IVPUSH Q1H PRN Carboprost Tromethamine [Hemabate DS] 250 mcg IM ASDIRECTED PRN Lidocaine 1% [Xylocaine 1%] 50 ml INJECT ONETIME PRN Methylergonovine [Methergine] 0.2 mg IM ASDIRECTED PRN Nalbuphine [Nubain] 10 mg IVPUSH Q1H PRN Sodium Chloride 0.9% [Normal Saline] 10 ml IV ASDIRECTED PRN Sodium Chloride 0.9% [Saline Flush] 10 ml FLUSH ASDIRECTED PRN Sodium Chloride 0.9% [Saline Flush] 2.5 ml FLUSH ASDIRECTED PRN Terbutaline [Brethine] 0.25 mg SUBCUT ASDIRECTED PRN Tranexamic Acid [Cyklokapron] 1,000 mg Sodium Chloride 0.9% [Normal Saline] 100 ml IV ONETIME Water For Irrigation,Sterile [Sterile Water for Irrigation] 1,000 ml IRR ASDIRECTED PRN miSOPROStol [Cytotec] 200 mcg PO ONETIME PRN miSOPROStol [Cytotec] 25 mcg VAG ONETIME PRN miSOPROStol [Cytotec] 25 mcg VAG Q6H PRN Resuscitation Status Routine 11/19/18 00:22 Patient Status [ADT] Routine Communication Order [RC] ASDIRECTED Communication Order [RC] ASDIRECTED Communication Order [RC] ASDIRECTED May Shower [RC] ASDIRECTED Notify Provider [RC] PRN Notify Provider [RC] PRN Notify Provider [RC] PRN Notify Provider [RC] STAT Oxygen Therapy [RC] ASDIRECTED Up ad Pat [RC] ASDIRECTED Vital Signs [RC] PER UNIT ROUTINE Vital Signs [RC] PER UNIT ROUTINE Scalp Electrode [WOMSER] Per Unit Routine Peripheral IV Insertion Adult [OM.PC] Routine 11/19/18 00:30 Lactated Ringers [Ringers, Lactated] 1,000 ml IV ASDIRECTED Oxytocin/0.9 % Sodium Chloride [Oxytocin 30 Unit/500 ML-NS] 30 unit in 500 ml IV TITRATE Oxytocin/0.9 % Sodium Chloride [Oxytocin 30 Unit/500 ML-NS] 30 unit in 500 ml IV TITRATE Medication Administration Instruction [OM.PC] Q3H 11/19/18 05:54 Ondansetron [Zofran] 4 mg IVPUSH Q6H PRN 11/19/18 Breakfast Clear Liquid Diet [DIET]
--- NOTE | 2018-11-19 17:12 | OR ---
SURGEON: Love García M.D. DATE OF PROCEDURE: 11/19/2018 PREOPERATIVE DIAGNOSIS: A 40-week intrauterine , lives remote from the hospital. POSTOPERATIVE DIAGNOSIS: A 40-week intrauterine , lives remote from the hospital. PROCEDURE: Pitocin induction of labor, artificial rupture of membranes, term spontaneous vaginal delivery. PRIMARY SURGEON: Love García MD. ANESTHESIA: Epidural. ESTIMATED BLOOD LOSS: 100 mL. FINDINGS: Liveborn male, scores 7 and 9, weighing 3870 g. Placenta spontaneous, Schultze intact, with 3 vessels with a remarkably long cord. The perineum was intact. COMPLICATIONS: None known. DISPOSITION: Mother and baby are in LDR in good condition. BRIEF HISTORY: This is a 22-year-old female, G6, P2. She presents at 40 weeks' gestation for induction of labor. She does live remote from the hospital. Additionally, she has some findings of prolonged DRVVT and the director client recommended that she continue on Lovenox through the . Her Lovenox was discontinued 2 days prior to admission, and she presents for admission for induction of labor. She had category 1 heart tones. She received a single dose of Cytotec, followed by Pitocin and artificial rupture of membranes. She received an epidural shortly thereafter, and within 2 hours, she was complete. DESCRIPTION OF PROCEDURE: With the patient in dorsal lithotomy position, the patient pushed over one contraction to a 5+ station at which time the head was delivered spontaneously and atraumatically over the perineum with support with subsequent delivery of the infant's shoulders and body without any difficulty. The infant was bulb suctioned by nose and mouth. Cord was clamped x2 and cut after it had ceased to pulsate, and the infant was handed to the mother in the presence of nurse attending delivery. The infant was a liveborn male, scores 7 and 9, weighing 3870 g. Cord blood was collected for cord ABGs as well as routine cord blood sampling. Pitocin was initiated after delivery of the infant to assist with delivery of the placenta, which was delivered spontaneously, Schultze intact with 3 vessels. Upon inspection the pelvis and perineum, there were no periurethral, vaginal sidewall, cervical, rectal, or perineal lacerations. EBL was less than 200 mL. There were no known complications. Mother and baby are in LDR in good condition. She will be restarted on her Lovenox and continued for 6 weeks. BAKARI CHAPMAN /[id number]
[2018-11-19] MEDS ORDERED: Enoxaparin 30 MG/0.3 ML Syringe SUBCUT SCH (22:00)
[2018-11-20] MEDS: Acetaminophen 500 MG Tab PO PRN ×2 (02:27→12:01)
[2018-11-20 04:40] VITALS: BP 111/65; PULSE 85
--- NOTE | 2018-11-20 08:36 | PCM.PNPP ---
- General Info Date of Service: 11/20/18 Subjective Update: Feeling well, no issues. baby. Functional Status: Reports: Pain Controlled, Tolerating Diet, Ambulating, Urinating - Review of Systems General: Reports: No Symptoms HEENT: Reports: No Symptoms Pulmonary: Reports: No Symptoms Cardiovascular: Reports: No Symptoms Gastrointestinal: Reports: No Symptoms Genitourinary: Reports: No Symptoms Musculoskeletal: Reports: No Symptoms Skin: Reports: No Symptoms Neurological: Reports: No Symptoms Psychiatric: Reports: No Symptoms - Patient Data Vital Signs - Most Recent: Last Vital Signs Temp 36.6 C 11/20/18 04:30 Pulse 85 11/20/18 04:30 Resp 15 11/20/18 04:30 BP 111/65 11/20/18 04:30 Pulse Ox 96 11/20/18 04:30 Weight - Most Recent: 259 lb I&O - Last 24 Hours: Intake & Output 11/19/18 11/20/18 11/20/18 22:59 06:59 14:59 Intake Total 2 Balance 2 Lab Results - Last 24 Hours: Laboratory Results - last 24 hr 11/19/18 11/19/18 11/20/18 Range/Units 10:56 11:55 06:15 Hgb 11.6 L (12.0-16.0) g/dL Hct 34.3 L (36.0-46.0) % Cord ABG pH 7.266 (7.18-7.38) Cord ABG Base Excess -4 (-10--2) Cord VBG pH 7.414 (7.25-7.45) Cord VBG Base Excess -4 (-10--2) Screen NEGATIVE (NEGATIVE) RhIG Candidate? YES Rhogam Indicated YES, BABY RH POS H Med Orders - Current: Current Medications Acetaminophen (Tylenol Extra Strength) 500 mg PO Q4H PRN PRN Reason: Pain Acetaminophen (Tylenol Extra Strength) 1,000 mg PO Q4H PRN PRN Reason: Pain Last Admin: 11/20/18 02:27 Dose: 1,000 mg Benzocaine/Menthol (Dermoplast Pain Relief 20%-0.5% [place]) 78 gm TOP ASDIRECTED PRN PRN Reason: Perineal Comfort Measure Bisacodyl (Dulcolax) 10 mg RECTAL ONETIME PRN PRN Reason: Constipation Docusate Sodium (Colace) 100 mg PO BID PRN PRN Reason: Constipation Emollient Ointment (Lansinoh Hpa) 0 gm TOP ASDIRECTED PRN PRN Reason: Sore Nipples Last Admin: 11/19/18 18:16 Dose: 1 tube Enoxaparin Sodium (Lovenox) 30 mg SUBCUT Q24H MARINE Last Admin: 11/19/18 22:10 Dose: 30 mg Escitalopram Oxalate (Lexapro) 5 mg PO DAILY [facility] Methylergonovine Maleate (Methergine) 0.2 mg IM ONETIME PRN PRN Reason: Excessive Vaginal Bleeding Oxycodone HCl (Oxycodone) 5 mg PO Q2H PRN PRN Reason: Pain Last Admin: 11/19/18 19:00 Dose: 5 mg Witch Violeta (Tucks) 1 pad TOP ASDIRECTED PRN PRN Reason: comfort care Discontinued Medications Butorphanol Tartrate (Stadol) 1 mg IVPUSH Q1H PRN PRN Reason: Pain Carboprost Tromethamine (Hemabate Ds) 250 mcg IM ASDIRECTED PRN PRN Reason: Post Hemorrhage Fentanyl (Sublimaze) Confirm Administered Dose 100 mcg .ROUTE .[employer]-MED ONE Stop: 11/19/18 09:00 Lactated Ringer's (Ringers, Lactated) 1,000 mls @ 150 mls/hr IV ASDIRECTED [facility] Oxytocin/Sodium Chloride (Oxytocin 30 Unit/500 Ml-Ns) 30 unit in 500 mls @ 999 mls/hr IV TITRATE [facility] Oxytocin/Sodium Chloride (Oxytocin 30 Unit/500 Ml-Ns) 30 unit in 500 mls @ 2 mls/hr IV TITRATE [facility]; Protocol Last Titration: 11/19/18 10:10 Dose: 8 munits/min, 8 mls/hr Tranexamic Acid 1,000 mg/ (Sodium Chloride) 110 mls @ 660 mls/hr IV ONETIME PRN PRN Reason: Bleeding Fentanyl/Bupivacaine HCl ([id number]-[id number]-Vx 2 Mcg/Ml-0.125%) Confirm Administered Dose 100 mls @ as directed .ROUTE .[facility]-MED ONE Stop: 11/19/18 09:01 Lidocaine HCl (Xylocaine 1%) 50 ml INJECT ONETIME PRN PRN Reason: Laceration repair Methylergonovine Maleate (Methergine) 0.2 mg IM ASDIRECTED PRN PRN Reason: Post Hemorrhage Misoprostol (Cytotec) 200 mcg PO ONETIME PRN PRN Reason: Post Hemorrhage Misoprostol (Cytotec) 25 mcg VAG ONETIME PRN PRN Reason: Cervical Ripening Last Admin: 11/19/18 01:40 Dose: 25 mcg Misoprostol (Cytotec) 25 mcg VAG Q6H PRN PRN Reason: Cervical Ripening Nalbuphine HCl (Nubain) 10 mg IVPUSH Q1H PRN PRN Reason: Pain (severe 7-10) Ondansetron HCl (Zofran) 4 mg IVPUSH Q6H PRN PRN Reason: Nausea/Vomiting Last Admin: 11/19/18 06:00 Dose: 4 mg Ropivacaine (Naropin 0.2%) Confirm Administered Dose 20 ml .ROUTE .[employer] ONE Stop: 11/19/18 09:02 Sodium Chloride (Saline Flush) 10 ml FLUSH ASDIRECTED PRN PRN Reason: Keep Vein Open Sodium Chloride (Saline Flush) 2.5 ml FLUSH ASDIRECTED PRN PRN Reason: Keep Vein Open Sodium Chloride (Normal Saline) 10 ml IV ASDIRECTED PRN PRN Reason: IV Use Sterile Water (Sterile Water For Irrigation) 1,000 ml IRR ASDIRECTED PRN PRN Reason: delivery Last Admin: 11/19/18 11:25 Dose: 1,000 ml Terbutaline Sulfate (Brethine) 0.25 mg SUBCUT ASDIRECTED PRN PRN Reason: Tacysystole - Interaction Disposition, : [place] at Bedside Feeding: Breastfed Infant; Nursed Well Support Person: - Recovery Exam Fundal Tone: Firm Fundal Level: 1 Fingerbreadths Below Umbilicus Fundal Placement: Midline Lochia Amount: Small Lochia Color: Rubra/Red Perineum Description: Intact, Minimal Bruising/Swelling Episiotomy/Laceration: None Bladder Status: Voiding Urinary Elimination: Voided - Exam General: Alert, Oriented, No Acute Distress Lungs: Normal Respiratory Effort GI/Abdominal Exam: Soft, Non-Tender, No Distention Extremities: Normal Inspection, Non-Tender, No Pedal Edema Skin: Warm, Dry, Intact Psy/Mental Status: Alert, Normal Affect, Normal Mood - Problem List Review Problem List Initiated/Reviewed/Updated: Yes - Assessment Assessment:: 22yo PPD1 s/p at 40wk. stable and recovering well. - tolerating PO and ambulating well - bleeding minimal - Hgb 12.4 on admission, 11.6 today. - continue lovenox 30mg qD for 6wks , restarted on PPD1 - meeting all milestone, anticipate discharge home today
[2018-11-20] MEDS ORDERED: Escitalopram 10 MG Tab PO SCH (09:00)
--- NOTE | 2018-11-20 12:07 | PCM48HPAN ---
Post Anesthesia Note - EVALUATION WITHIN 48HRS OF ANESTHETIC Vital Signs in Normal Range: Yes Patient Participated in Evaluation: Yes Respiratory Function Stable: Yes Airway Patent: Yes Cardiovascular Function Stable: Yes Hydration Status Stable: Yes Pain Control Satisfactory: Yes Nausea and Vomiting Control Satisfactory: Yes Mental Status Recovered: Yes Vital Signs: Last Vital Signs Temp 36.6 C 11/20/18 04:30 Pulse 85 11/20/18 04:30 Resp 15 11/20/18 04:30 BP 111/65 11/20/18 04:30 Pulse Ox 96 11/20/18 04:30 - COMMENTS/OBSERVATIONS Free Text/Narrative:: Doing well post.
== END 2018-11-20 13:15 | disposition home or self-care (01) | DRG 560 ==
LOC: MW.OBCHECK 00:01 → MW.OB 00:04 → MW.OBCHECK 00:22 → MW.OB 00:22 → OBSVTOIN 10:56 → MW.OB 14:15
PROVIDERS: ADMIT Obstetrics & Gynecology; ATTEND Obstetrics & Gynecology
PROC: 10E0XZZ Delivery of Products of Conception, External Approach (ICD-10-PCS; principal; 2018-11-19)
PROC: 10907ZC Drainage of Amniotic Fluid, Therapeutic from Products of Conception, Via Natural or Artificial Opening (ICD-10-PCS; 2018-11-19)
PROC: 3E033VJ Introduction of Other Hormone into Peripheral Vein, Percutaneous Approach (ICD-10-PCS; 2018-11-19)
PROC: 3E0R3BZ Introduction of Anesthetic Agent into Spinal Canal, Percutaneous Approach (ICD-10-PCS; 2018-11-19)
PROC: 3E0P7VZ Introduction of Hormone into Female Reproductive, Via Natural or Artificial Opening (ICD-10-PCS; 2018-11-19)
DX: O99.344 Other mental disorders complicating childbirth (principal); O99.12 Other diseases of the blood and blood-forming organs and certain disorders involving the immune mechanism complicating childbirth; F32.9 Major depressive disorder, single episode, unspecified; F41.9 Anxiety disorder, unspecified; O99.62 Diseases of the digestive system complicating childbirth; K21.9 Gastro-esophageal reflux disease without esophagitis; Z3A.39 39 weeks gestation of pregnancy; Z37.0 Single live birth; D68.61 Antiphospholipid syndrome; Z79.899 Other long term (current) drug therapy
CPT/HCPCS: 36415; 51702; 59025; 59409; 82803; 85014; 85018; 85027; 85460; 86850; 86900; 86901; A9270-GY; J1650; J2405; J2590; J2792

== ENCOUNTER 2022-01-23 10:07 | Emergency (ER) | payer BC ==
[2022-01-23] MEDS ORDERED: Metoclopramide 10 MG/2 ML SDV IVPUSH ONE (10:15)
[2022-01-23] MEDS ORDERED: Sodium Chloride 0.9% 10 ML Syringe FLUSH PRN (10:15)
[2022-01-23] MEDS ORDERED: Sodium Chloride 0.9% 2.5 ML Syringe FLUSH PRN (10:15)
[2022-01-23] MEDS ORDERED: Sodium Chloride 0.9% 1,000 ML IV ONE (10:16)
[2022-01-23 10:50] LABS: BLOOD UREA NITROGEN,BUN 17 mg/dL (7.0-18.0); CARBON DIOXIDE,CO2 23.9 mmol/L (21.0-32.0); CHLORIDE,CL 107 mmol/L (98-107); GLUCOSE RANDOM 109 mg/dL (74-106); POTASSIUM,K 3.8 mmol/L (3.5-5.1); SODIUM,NA 144 mmol/L (136-145)
[2022-01-23] MEDS ORDERED: Iopamidol 755 Mg/ML 100 ML Bottle IVPUSH ONE (10:50)
[2022-01-23 10:53] LABS: ESTIMATED GFR 90 mL/min (>60)
[2022-01-23 12:10] VITALS: BP 119/68; PULSE 63
== END 2022-01-23 11:50 ==
LOC: MW.ED 10:07
DX: R53.1 Weakness (principal); Z79.899 Other long term (current) drug therapy; Z20.822 Contact with and (suspected) exposure to COVID-19
CPT/HCPCS: 36415; 70450; 70496; 70498; 71045; 80053; 80305; 80307; 81001; 81025; 82947; 85025; 85610; 87635; 93005; 96361; 96374; 99285; J2765; J3490; J7030; Q9967; U0002

== ENCOUNTER 2025-01-23 18:32 | Observation (INO) | payer BC | END 2025-01-23 22:51 | disposition home or self-care (01) | LOC: MW.OB 18:32 → MW.OBCHECK 18:32 → MW.OB 18:38 → MW.OBCHECK 18:38 | PROVIDERS: ADMIT Obstetrics & Gynecology; ATTEND Obstetrics & Gynecology | DX: O46.92 Antepartum hemorrhage, unspecified, second trimester (principal); Z3A.25 25 weeks gestation of pregnancy | CPT/HCPCS: 59025; G0378 ==